=== PATIENT | male | born 1945 | race Caucasian/White ===

== ENCOUNTER 2016-03-26 06:11 | Day surgery (SDC) | payer MEDICARE, OTHER ==
[2016-03-24 15:43] VITALS: BMI 28.8
[~2016-03-26 06:11] MED LIST: LACTATED RINGERS 1,000 ML IV SCH; SODIUM CHLORIDE 0.9% 1,000 ML IV SCH
[2016-03-26 07:08] LABS: INR 2.4 (<1.1)
[2016-03-26 07:09] LABS: Prothrombin Time 23.3 sec (9.0-12.0)
[2016-03-26] MEDS ORDERED: SODIUM CHLORIDE 0.9% 500 ML IV ONE (07:17)
[2016-03-26] MEDS ORDERED: PROPOFOL 10 MG/ML 20 ML VIAL IV ONE (07:45)
--- NOTE | 2016-03-26 08:01 | P.PCN ---
Date of Procedure: 03/26/16 Preoperative Diagnosis: Atrial flutter Postoperative Diagnosis: Sinus rhythm and sinus bradycardia with intermittent pacemaker rhythm Procedure(s) Performed: Cardioversion Description of Procedure: This is 71-year-old gentleman with history of ischemic cardiomyopathy was recently diagnosed to have atrial flutter. Patient was adequately anticoagulated and was brought in for cardioversion. Patient was given IV sedation with propofol by department of anesthesia. A synchronized shock of 100 J was applied with the anterior-posterior paddles. Patient converted to sinus rhythm. Tolerated the procedure well. No immediate complications. Plan: Patient will be monitored for the next 2-3 hours. If stable will be discharged home. Patient will continue home medications. Follow-up with Dr. Bruce in 1 week.
[2016-03-26 08:28] VITALS: RESP 16
[2016-03-26 10:36] VITALS: BP 124/79; PULSE 56; TEMP 98
== END 2016-03-26 10:43 | disposition home or self-care (01) ==
LOC: CATHCVL 06:11
PROVIDERS: ATTEND Internal Medicine Cardiovascular Disease
DX: I48.92 Unspecified atrial flutter (principal); Z79.01 Long term (current) use of anticoagulants; I25.89 Other forms of chronic ischemic heart disease; I10 Essential (primary) hypertension; Z87.891 Personal history of nicotine dependence; I25.10 Atherosclerotic heart disease of native coronary artery without angina pectoris; Z95.810 Presence of automatic (implantable) cardiac defibrillator; Z95.5 Presence of coronary angioplasty implant and graft; Z95.1 Presence of aortocoronary bypass graft; E78.5 Hyperlipidemia, unspecified; E78.00 Pure hypercholesterolemia, unspecified; I25.2 Old myocardial infarction; Z79.02 Long term (current) use of antithrombotics/antiplatelets; Z79.82 Long term (current) use of aspirin; Z79.899 Other long term (current) drug therapy; Z88.8 Allergy status to other drugs, medicaments and biological substances
CPT/HCPCS: 93005; 92960; 85610; J2704; 99152

== ENCOUNTER 2017-02-22 21:14 | Inpatient (IN) | payer MEDICARE, OTHER ==
[2017-02-22] MEDS ORDERED: SODIUM CHLORIDE 0.9% 1,000 ML IV STA (22:21)
--- NOTE | 2017-02-22 22:25 | ED ---
General Adult HPI - General Chief complaint: Chest Pain Stated complaint: chest pain Time Seen by Provider: 02/22/17 21:16 Source: patient, EMS, RN notes reviewed, old records reviewed Mode of arrival: EMS Limitations: no limitations - History of Present Illness Initial comments: This is a 71-year-old male to the ER for evaluation. This patient presents today for evaluation of ventricular tachycardia. Patient is transferred to Hospital requested branch account manager for intervention. Patient himself at this time is no complaints of chest pain or shortness of breath. Taking all medications as prescribed, no discharge of defibrillator - Related Data Home Medications Medication Instructions Recorded Confirmed Isosorbide Mononitrate ER [Imdur] 60 mg PO DAILY 02/08/14 02/22/17 Losartan [Cozaar] 25 mg PO DAILY 02/08/14 02/22/17 Warfarin [Coumadin] 2.5 mg PO DAILY 03/24/16 02/22/17 Carvedilol [Coreg] 6.25 mg PO BID 12/11/16 02/22/17 Previous Rx's Medication Instructions Recorded Aspirin 81 mg PO DAILY #30 chew 12/01/15 Atorvastatin [Lipitor] 80 mg PO HS #30 tab 12/01/15 Clopidogrel [Plavix] 75 mg PO DAILY #100 tab 12/01/15 Nitroglycerin Sl Tabs [Nitrostat] 0.4 mg SUBLINGUAL Q5M PRN #25 tab 12/01/15 Spironolactone [Aldactone] 12.5 mg PO DAILY #30 tab 12/01/15 Allergies Allergy/AdvReac Type Severity Reaction Status Date / Time RUTH Inhibitors AdvReac Severe KIDNEY Verified 02/22/17 21:34 FAILURE Review of Systems ROS Statement: Those systems with pertinent positive or pertinent negative responses have been documented in the HPI. ROS Other: All systems not noted in ROS Statement are negative. Past Medical History Past Medical History: Atrial Fibrillation, Chest Pain / Angina, Eye Disorder, Hyperlipidemia, Hypertension, Myocardial Infarction ([place]), Renal Disease Additional Past Medical History / Comment(s): SEE DR PRASAD'S H&P. HX RENAL PROB R/T RUTH Inhibitors, STATES LEFT KIDNEY SMALLER THAN RIGHT, HAD RENAL FAILURE 2006-RESOLVED. CARDIOMYOPATHY. AAA, HAS YEARLY F/U. GLAUCOMA 2017 SeeCardiology H&P, Dr Prasad;s Last Myocardial Infarction Date:: 2010 History of Any Multi-Drug Resistant Organisms: None Reported Past Surgical History: AICD, Coronary Bypass/CABG, Heart Catheterization, Heart Catheterization With Stent Additional Past Surgical History / Comment(s): 1994 Cabg triple vessel. TOTAL OF 4 STENTS. LT CarOtid Endartectomy. GENERATOR CHANGE 09/20/14, AND 10-16-14 HAD REVISION OF PIPE LINE WALKER. Past Anesthesia/Blood Transfusion Reactions: No Reported Reaction Additional Past Anesthesia/Blood Transfusion Reaction / Comment(s): Pt recieved blood with no reaction. Date of Last Stent Placement:: 11/2015 Type of Cardiac Device: AICD Device Placement Date:: 06/27/10,10-16-14 Past Psychological History: No Psychological Hx Reported Smoking Status: Former smoker Past Alcohol Use History: None Reported Past Drug Use History: None Reported - Past Family History Father Family Medical History: Congestive Heart Failure (CHF), Myocardial Infarction ( [place]) Mother Family Medical History: Cancer Additional Family Medical History / Comment(s): Mother of unknown cancer. General Exam Limitations: no limitations General appearance: alert, in no apparent distress Head exam: Present: atraumatic, normocephalic, normal inspection Eye exam: Present: normal appearance, PERRL, EOMI. Absent: scleral icterus, conjunctival injection, periorbital swelling ENT exam: Present: normal exam, mucous membranes moist Neck exam: Present: normal inspection. Absent: tenderness, meningismus, lymphadenopathy Respiratory exam: Present: normal lung sounds bilaterally. Absent: respiratory distress, wheezes, rales, rhonchi, stridor Cardiovascular Exam: Present: regular rate, normal rhythm, normal heart sounds. Absent: systolic murmur, diastolic murmur, rubs, gallop, clicks GI/Abdominal exam: Present: soft, normal bowel sounds. Absent: distended, tenderness, guarding, rebound, rigid Extremities exam: Present: normal inspection, full ROM, normal capillary refill. Absent: tenderness, pedal edema, joint swelling, calf tenderness Back exam: Present: normal inspection Neurological exam: Present: alert, oriented X3, CN II-XII intact Psychiatric exam: Present: normal affect, normal mood Skin exam: Present: warm, dry, intact, normal color. Absent: rash Course Vital Signs 02/22/17 02/22/17 21:21 22:01 Temperature 97.6 F Pulse Rate 68 60 Respiratory 18 18 Rate Blood Pressure 167/83 147/78 O2 Sat by Pulse 98 99 Oximetry - Reevaluation(s) Reevaluation #1: 02/22/17 23:16 Transfer paperwork from transferring facility is reviewed EKG Findings - EKG Comments: EKG Findings:: EKG shows sinus rhythm rate of 64, VT 244, QRS 128, QTc 412 Medical Decision Making - Medical Decision Making 71 male who is accepted in transfer for evaluation regarding ventricular tachycardia, spoke with cardiology who will admit patient to medicine, patient [id number] troponins and have cardiology evaluation in the morning, patient to be ruled out for acute cardiopulmonary evaluation and support Disposition Clinical Impression: Atrial fib/flutter, transient, AICD (automatic cardioverter/defibrillator) present, Ventricular tachycardia Disposition: ADMITTED IP TO THIS HOSP Condition: Fair Referrals: Brii Canada DO [Primary Care Provider] - 1-2 days
[2017-02-22] MEDS ORDERED: NITROGLYCERIN SL TABS 0.4 MG TAB SUBLINGUAL PRN (23:10)
[2017-02-22] MEDS ORDERED: MORPHINE SULFATE 5 MG/ML SYRINGE IV PRN (23:10)
[2017-02-22 23:23] LABS: Creatine Kinase MB 13.1 ng/mL (0.0-2.4); Troponin I 5.74 ng/mL (0.000-0.034)
[2017-02-22] MEDS ORDERED: HEPARIN SODIUM,PORCINE 5,000 UNIT/ML 1 ML VIAL IV PRN (23:30)
[2017-02-23] MEDS: SODIUM CHLORIDE 0.9% 1,000 ML IV SCH ×2 (00:07→20:15)
[2017-02-23 00:36] VITALS: BMI 28.5
[2017-02-23] MEDS: HEPARIN SOD,PORK IN 0.45% NACL 25,000 UNIT in 0.45% NACL 1 500ML.BAG IV SCH ×2 (00:41→20:15)
[2017-02-23] MEDS: NITROGLYCERIN OINT 1 INCH/GM PACKET TOPICAL SCH ×2 (00:43→06:12)
--- NOTE | 2017-02-23 01:00 | P.HPIM ---
History of Present Illness H&P Date: 02/23/17 Chief Complaint: chest pain 71-year-old male who developed chest pain after he lifted some bags.pain was described as pressure associated with some shortness of breath. She has an extensive cardiac history had open-heart surgery in the past. This had 4 stents after that. Patient with history of cardiomyopathy had defibrillator placed in the past and it was changed. Patient was scheduled to have a procedure for SVT by Dr Prasad. Upon evaluation in the ER, patient was found to have elevated troponins. Started on heparin drip and Nitropaste patient currently chest pain-free. Review of Systems Constitutional: Denies fever, Denies sweats Cardiovascular: Reports chest pain, Denies irregular heart beat Respiratory: Denies excessive sputum, Denies hemoptysis, Denies pleurisy Gastrointestinal: Denies abdominal pain, Denies diarrhea, Denies nausea, Denies vomiting Genitourinary: Denies genital pain, Denies polyuria Musculoskeletal: Denies loss of height, Denies myalgias Musculoskeletal: absent: ankle pain, elbow pain Integumentary: Denies pruritus, Denies rash Neurological: Denies numbness, Denies weakness Psychiatric: Reports as per HPI Endocrine: Denies fatigue, Denies weight change Hematologic/Lymphatic: Denies lymphadenopathy Allergic/Immunologic: Denies angioedema, Denies wheezing Past Medical History Past Medical History: Atrial Fibrillation, Chest Pain / Angina, Eye Disorder, Hyperlipidemia, Hypertension, Myocardial Infarction ([place]), Renal Disease Additional Past Medical History / Comment(s): SEE DR PRASAD'S H&P. HX RENAL PROB R/T RUTH Inhibitors, STATES LEFT KIDNEY SMALLER THAN RIGHT, HAD RENAL FAILURE 2006-RESOLVED. CARDIOMYOPATHY. AAA, HAS YEARLY F/U. GLAUCOMA 2017 SeeCardiology H&P, Dr Prasad;s Last Myocardial Infarction Date:: 2010 History of Any Multi-Drug Resistant Organisms: None Reported Past Surgical History: AICD, Coronary Bypass/CABG, Heart Catheterization, Heart Catheterization With Stent Additional Past Surgical History / Comment(s): 1994 Cabg triple vessel. TOTAL OF 4 STENTS. LT CarOtid Endartectomy. GENERATOR CHANGE 09/20/14, AND 10-16-14 HAD REVISION OF ELECTRICIAN'S ASSISTANT. Past Anesthesia/Blood Transfusion Reactions: No Reported Reaction Additional Past Anesthesia/Blood Transfusion Reaction / Comment(s): Pt recieved blood with no reaction. Date of Last Stent Placement:: 11/2015 Type of Cardiac Device: AICD Device Placement Date:: 06/27/10,10-16-14 Past Psychological History: No Psychological Hx Reported Additional Psychological History / Comment(s): Pt lives with at home. Pt is independent . Pt is retired FROM [employer]. He drives a car.RETIRED WORK IN [employer]. Smoking Status: Former smoker Past Alcohol Use History: None Reported Additional Past Alcohol Use History / Comment(s): STARTED SMOKING AT AGE 17, SMOKED 1 PPD, QUIT 2006 Past Drug Use History: None Reported - Past Family History Father Family Medical History: Congestive Heart Failure (CHF), Myocardial Infarction ( [place]) Mother Family Medical History: Cancer Additional Family Medical History / Comment(s): Mother of unknown cancer. Medications and Allergies Home Medications Medication Instructions Recorded Confirmed Type Isosorbide Mononitrate ER [Imdur] 60 mg PO DAILY 02/08/14 02/22/17 History Losartan [Cozaar] 25 mg PO DAILY 02/08/14 02/22/17 History Aspirin 81 mg PO DAILY #30 chew 12/01/15 02/22/17 Rx Atorvastatin [Lipitor] 80 mg PO HS #30 tab 12/01/15 02/22/17 Rx Clopidogrel [Plavix] 75 mg PO DAILY #100 tab 12/01/15 02/22/17 Rx Nitroglycerin Sl Tabs [Nitrostat] 0.4 mg SUBLINGUAL Q5M PRN #25 tab 12/01/1509/02 Rx Spironolactone [Aldactone] 12.5 mg PO DAILY #30 tab 12/01/15 02/22/17 Rx Warfarin [Coumadin] 2.5 mg PO DAILY 03/24/16 02/22/17 History Carvedilol [Coreg] 6.25 mg PO BID 12/11/16 02/22/17 History Allergies Allergy/AdvReac Type Severity Reaction Status Date / Time RUTH Inhibitors AdvReac Severe KIDNEY Verified 02/22/17 21:34 FAILURE Physical Exam Vitals: Vital Signs Temp Pulse Resp BP Pulse Ox 02/23/17 00:26 97.1 F L 68 18 166/75 100 02/23/17 00:12 97.1 F L 65 18 166/82 100 02/22/17 22:01 60 18 147/78 99 02/22/17 21:21 97.6 F 68 18 167/83 98 Intake and Output 02/22/17 02/22/17 02/23/17 14:59 22:59 06:59 Other: Weight 92.986 kg 92.986 kg Patient Weight 02/23/17 06:59 Weight 92.986 kg - EENT Eyes: EOMI, PERRLA - Neck Neck: no lymphadenopathy, no stridor - Respiratory Respiratory: bilateral: CTA, negative: rhonchi, wheezing - Cardiovascular Rhythm: regular Heart sounds: normal: S1, S2 - Gastrointestinal General gastrointestinal: normal bowel sounds - Integumentary Integumentary: no pale, no rash - Neurologic Neurologic: CNII-XII intact - Musculoskeletal Musculoskeletal: strength equal bilaterally - Psychiatric Psychiatric: A&O x's 3, appropriate affect Results Labs: Abnormal Lab Results - Last 24 Hours (Table) 02/22/17 Range/Units 22:29 CK-MB (CK-2) 13.1 H* (0.0-2.4) ng/mL Troponin I 5.740 H* (0.000-0.034) ng/mL Thrombosis Risk Factor Assmnt - Choose All That Apply Each Risk Factor Represents 2 Points: Age 61-74 years Thrombosis Risk Factor Assessment Total Risk Factor Score: 2 Thrombosis Risk Factor Assessment Level: Low Risk Assessment and Plan (1) NSTEMI (non-ST elevated myocardial infarction) Narrative/Plan: Currently on heparin drip Nitro paste Aspirin cardiology to evaluate Current Visit: No Status: Acute Code(s): I21.4 - NON-ST ELEVATION (NSTEMI) MYOCARDIAL INFARCTION SNOMED Code(s): 953535284 (2) CAD (coronary artery disease) Narrative/Plan: History of chronic artery bypass grafting and 4 stents On aspirin and Plavix Current Visit: Yes Status: Acute Code(s): I25.10 - ATHSCL HEART DISEASE OF [place] CORONARY ARTERY W/O ANG PCTRS SNOMED Code(s): 16808581 (3) Ventricular tachycardia Narrative/Plan: Patient had procedure scheduled for tomorrow. Currently no signs of SVT Current Visit: Yes Status: Acute Code(s): I47.2 - VENTRICULAR TACHYCARDIA SNOMED Code(s): 49218835 (4) CRF (chronic renal failure) Narrative/Plan: We'll monitor renal function Current Visit: No Status: Acute Code(s): N18.9 - CHRONIC KIDNEY DISEASE, UNSPECIFIED SNOMED Code(s): 21206736 (5) HTN (hypertension) Narrative/Plan: On Cozaar ,imdur and coreg Current Visit: No Status: Acute Code(s): I10 - ESSENTIAL (PRIMARY) HYPERTENSION SNOMED Code(s): 43023841 (6) Hyperlipemia Narrative/Plan: Lipitor Current Visit: No Status: Acute Code(s): E78.5 - HYPERLIPIDEMIA, UNSPECIFIED SNOMED Code(s): 24758234 (7) Ischemic cardiomyopathy Narrative/Plan: Compensated Current Visit: No Status: Acute Code(s): I25.5 - ISCHEMIC CARDIOMYOPATHY SNOMED Code(s): 444400833
[2017-02-23 04:55] LABS: Potassium 4.5 mmol/L (3.5-5.1)
[2017-02-23 06:21] LABS: Basophils % (A) 1 %; Eosinophils # (A) 0.1 k/uL (0-0.7); Eosinophils % (A) 1 %; HGB 12.3 gm/dL (13.0-17.5); Lymphocytes # (A) 1.2 k/uL (1.0-4.8); Lymphocytes % (A) 21 %; MCH 27.3 pg (25.0-35.0); MCHC 30.8 g/dL (31.0-37.0); MCV 88.7 fL (80.0-100.0); Mean Platelet Volume 7.4; Monocytes # (A) 0.4 k/uL (0-1.0); Monocytes % (A) 7 %; Neutrophils % (A) 69 %; Platelet Count 152 k/uL (150-450); RBC 4.51 m/uL (4.30-5.90); RDW 15.8 % (11.5-15.5); WBC 5.8 k/uL (3.8-10.6)
[2017-02-23 07:06] LABS: Creatine Kinase MB 17.6 ng/mL (0.0-2.4); Troponin I 8.06 ng/mL (0.000-0.034)
[2017-02-23 07:26] LABS: Albumin 3.7 g/dL (3.5-5.0); Calcium 9.3 mg/dL (8.4-10.2); Magnesium 1.8 mg/dL (1.6-2.3); Potassium 4.3 mmol/L (3.5-5.1); Total Bilirubin 0.6 mg/dL (0.2-1.3); Total Protein 6.3 g/dL (6.3-8.2)
[2017-02-23] MEDS: SPIRONOLACTONE 25 MG TAB PO SCH (07:51)
[2017-02-23] MEDS: CARVEDILOL 6.25 MG TAB PO SCH ×2 (07:51→20:19)
[2017-02-23] MEDS: CLOPIDOGREL 75 MG TAB PO SCH (07:52)
[2017-02-23] MEDS: LOSARTAN 25 MG TAB PO SCH (07:52)
[2017-02-23] MEDS: ASPIRIN 81 MG PO SCH (07:52)
[2017-02-23] MEDS ORDERED: SODIUM CHLORIDE 0.9% 1,000 ML in EMPTY BAG 1 BAG IV ONE (08:26)
[2017-02-23] MEDS ORDERED: ALPRAZolam 0.25 MG TAB PO PRN (08:26)
[2017-02-23] MEDS ORDERED: ASPIRIN 325 MG TAB PO STA (08:26)
[2017-02-23] MEDS ORDERED: NITROGLYCERIN SL TABS 0.4 MG TAB SUBLINGUAL PRN ×2 (08:26→13:05)
[2017-02-23] MEDS ORDERED: ALPRAZolam 0.5 MG TAB PO PRN (08:26)
[2017-02-23] MEDS ORDERED: ATORVASTATIN 80 MG TAB PO STA (08:26)
[2017-02-23] MEDS ORDERED: ASPIRIN 325 MG TAB PO SCH (09:00)
--- NOTE | 2017-02-23 09:28 | P.PN ---
Progress Note - Text Progress Note Date: 02/23/17 Patient is a 71-year-old male with a significant past medical history of coronary artery disease with prior bypass and stent, atrial fibrillation, cardiomyopathy, hypertension, and dyslipidemiawho presented to the emergency department as a transfer for chest pain and non-STEMI. He was started on a heparin drip and Nitropaste. On his initial vital signs he is slightly hypertensive at 172/75.he is admitted to the selective care unit for further evaluation by cardiology. His troponins were trended and continued to go up with a maximum of 8. He was maintained on his aspirin, Lipitor, Plavix, and Coreg. patient seen and examined at bedside. He denies any more chest pain. Denies any shortness of breath, lightheadedness, or dizziness. He denies any nausea or vomiting. He has no other complaints currently. vital signs temperature 97.6 pulse 60 respiratory rate 18 blood pressure 140/67 97% room air General: non toxic, no distress, appears at stated age Derm: warm, dry Head: atraumatic, normocephalic, symmetric Eyes: EOMI, no lid lag, anicteric sclera Mouth: no lip lesion, mucus membranes moist Cardiovascular: S1S2 reg, no murmur, positive posterior tibial pulse bilateral, Lungs: CTA bilateral, no rhonchi, no rales , no accessory muscle use Abdominal: soft, nontender to palpation, no guarding, no appreciable organomegaly Ext: no gross muscle atrophy, no edema, no contractures Neuro: CN II-XI grossly intact, no focal neuro deficits Psych: Alert, oriented, appropriate affect 1. non-ST segment elevated myocardial infarction-continue with aspirin, Plavix, Lipitor, Coreg, and heparin drip. Await cardiology recommendations. For formal note from 02/23 see H&P by Dr. Ronquillo. Harini Webber DO
[2017-02-23] MEDS ORDERED: SODIUM CHLORIDE 0.9% 1,000 ML IV ONE (11:14)
[2017-02-23] MEDS ORDERED: MIDAZOLAM 2 MG/2 ML VIAL IV ONE (11:45)
[2017-02-23] MEDS ORDERED: fentaNYL (PF) 50 MCG/ML 2 ML AMP IV ONE (11:45)
[2017-02-23] MEDS ORDERED: LIDOCAINE 2% INJ 20 MG/ML SQ ONE ×2 (11:48→12:08)
[2017-02-23] MEDS ORDERED: ISOSORBIDE MONONITRATE ER 60 MG TAB.ER.24H PO SCH (12:00)
[2017-02-23] MEDS ORDERED: BIVALIRUDIN BOLUS 250 MG/50 ML IV ONE (12:44)
[2017-02-23] MEDS ORDERED: BIVALIRUDIN 250 MG in SODIUM CHLORIDE 0.9% 50 ML IV ONE (12:45)
[2017-02-23] MEDS ORDERED: niCARdipine Syringe (1,000 mcg/10 mL) INTRACORON ONE (12:58)
[2017-02-23] MEDS ORDERED: IODIXANOL 320 MG/ML 100 ML IV ONE (12:58)
[2017-02-23] MEDS ORDERED: CLOPIDOGREL 75 MG TAB PO ONE (13:02)
[2017-02-23] MEDS ORDERED: ZOLPIDEM 5 MG TAB PO PRN (13:05)
[2017-02-23] MEDS ORDERED: ATROPINE SULFATE 0.1 MG/ML 10ML SYRINGE IV PRN (13:05)
[2017-02-23] MEDS ORDERED: MAG HYDROX/AL HYDROX/SIMETH 30 ML CUP PO PRN (13:05)
[2017-02-23] MEDS ORDERED: RX INFO: IV CONTRAST WAS GIVEN 1 EACH MISC MISCELLANE PRN (13:05)
[2017-02-23] MEDS ORDERED: SODIUM CHLORIDE 0.9% 1,000 ML IV SCH (13:15)
--- NOTE | 2017-02-23 13:31 | CONS ---
CONSULTATION Mr. Prado is a 71-year-old male who has a known history of coronary artery disease and presented to the emergency room at [facility] with symptoms of chest discomfort. He has a prior history of coronary artery disease status post coronary artery bypass grafting and percutaneous revascularization. He has a history of ischemic cardiomyopathy and status post ICD and was scheduled to undergo VT ablation today by Dr. Prasad. Yesterday, after moving the trash, he had severe chest discomfort radiating to the left arm and lasting for a few hours. He came into the emergency room at [facility] and subsequently transferred to [facility] where his troponins are elevated. His prior history is remarkable for the coronary bypass grafting performed in 1994. Most recently underwent stenting of the saphenous vein graft to the left circumflex done by Dr. Willingham in November of 2015 at the time of his cardiac catheterization. At that time, he was found to have total occluded left circumflex, totally occluded right coronary artery. The saphenous vein graft to the right coronary was totally occluded. He had significant stenosis of the saphenous vein graft to the left circumflex and a patent BARRAZA to the LAD. At that time, his echocardiogram showed an ejection fraction of 20-25%. The patient, according to him, has been stable until the episode yesterday. He has rare palpitation. No syncope. No PND. No orthopnea. No peripheral edema. His breathing has been stable. His coronary risk factors are remarkable for history of hypertension, history of hyperlipidemia. He is a nonsmoker, nondiabetic. MEDICATIONS: His medication includes: Aspirin, Lipitor 80 mg daily, Coreg 6.5 mg twice a day, Plavix 75 mg daily, isosorbide mononitrate 60 mg daily, losartan 25 mg daily. Spironolactone 12 .5 mg daily, and he was on Coumadin in the past because of episode of atrial flutter, status post cardioversion. REVIEW OF SYSTEMS: RESPIRATORY system: He has dyspnea on exertion. No recent wheezing. No cough. No wheezing. No cough. GI system: No recent GI bleeding. No peptic ulcer disease. system: No dysuria, hematuria. Nervous system: No history of stroke or seizure. PHYSICAL EXAMINATION: A 71-year-old male, alert and oriented, no apparent distress. Blood pressure 145/80 with a heart in the 60s. HEAD: Normocephalic. Eyes: Sclerae anicteric. Neck good upstroke. No bruit. No jugular venous distention. LUNGS: Clear to auscultation. HEART: Regular rate and rhythm S1, S2. No S3 with systolic murmur heard at the base. No diastolic murmur. No rub. ABDOMEN: Soft, nontender. Positive bowel sounds. No megaly. EXTREMITIES: No edema. Intact distal pulses. LAB DATA: Lab data revealed troponin of 5.7 and 8.0. BUN and creatinine 25 and 1.5, potassium 4.3, cholesterol 121, LDL of 68. His EKG revealed a sinus mechanism with intraventricular conduction delay. First- degree AV block and T-wave inversion laterally that appears to be more prominent. IMPRESSION: 1. Status post non ST-segment elevation myocardial infarction in a patient with known history of severe ischemic cardiomyopathy. The possibility of progression of disease in saphenous vein graft to left circumflex cannot be excluded. 2. Severe ischemic cardiomyopathy. 3. History of nonsustained ventricular tachycardia was scheduled to undergo ablation. 4. History of hypertension. 5. Hyperlipidemia. RECOMMENDATION: From the cardiac standpoint, we will proceed with coronary angiography by Dr. Bruce who is his primary burr grinder to further evaluate the status and guide treatment. In the meantime, I will obtain echocardiogram with Doppler and depending on his progress, further recommendation will be made. Thank you for this consult. We will follow with you. LINL / IJN: [id number] /
[2017-02-23 14:29] LABS: Creatine Kinase MB 12.1 ng/mL (0.0-2.4); Troponin I 3.61 ng/mL (0.000-0.034)
[2017-02-23 17:11] LABS: INR 1.2 (<1.2); Prothrombin Time 11.7 sec (9.0-12.0)
[2017-02-23] MEDS ORDERED: HYDROcodone/APAP 7.5-325MG 1 EACH TAB PO ONE (17:41)
--- NOTE | 2017-02-23 17:55 | ECHOF ---
Referral Reason:ut MEASUREMENTS -------- HEIGHT: 180.3 cm WEIGHT: 94.8 kg BP: 140/67 RVIDd: 3.1 cm (< 3.3) IVSd: 1.6 cm (0.6 - 1.1) LVIDd: 4.7 cm (3.9 - 5.3) LVPWd: 1.4 cm (0.6 - 1.1) IVSs: 1.9 cm LVIDs: 4.1 cm LVPWs: 1.6 cm LAESV Index (A-L): 32.31 ml/m Ao Diam: 3.5 cm (2.0 - 3.7) AV Cusp: 1.8 cm (1.5 - 2.6) LA Diam: 4.2 cm (2.7 - 3.8) MV EXCURSION: 15.857 mm (> 18.000) MV EF SLOPE: 61 mm/s (70 - 150) EPSS: 1.4 cm MV E Venkat: 0.52 m/s MV DecT: 337 ms MV A Venkat: 0.98 m/s MV E/A Ratio: 0.53 RAP: 5.00 mmHg RVSP: 22.70 mmHg FINDINGS -------- Resting bradycardia (HR<60bpm). This was a technically difficult study with suboptimal views. The left ventricular size is normal. There is moderate concentric left ventricular hypertrophy. T here is severe global hypokinesis of LV . Overall left ventricular systolic function is severely im paired with, an EF < 20%. The right ventricle is normal in size. Normal LA size by volume 22+/-6 ml/m2. The right atrium is normal in size. 1.5mg of Definity was utilized for enhancement of images Aortic valve is trileaflet and is mildly thickened. There is no evidence of aortic regurgitation. There is no evidence of aortic stenosis. The mitral valve leaflets are mildly thickened. Mild mitral annular calcification present. There is trace to mild mitral regurgitation. Trace tricuspid regurgitation present. Right ventricular systolic pressure is normal at < 35 mmHg. There is no evidence of pulmonary hypertension. The pulmonic valve was not well visualized. The aortic root size is normal. IVC Not well visulized. The pericardium is normal. There is no pericardial effusion. CONCLUSIONS -------- 1. Resting bradycardia (HR<60bpm). 2. This was a technically difficult study with suboptimal views. 3. The left ventricular size is normal. 4. There is moderate concentric left ventricular hypertrophy. 5. There is severe global hypokinesis of LV . 6. Overall left ventricular systolic function is severely impaired with, an EF < 20%. 7. Normal LA size by volume 22+/-6 ml/m2. 8. 1.5mg of Definity was utilized for enhancement of images 9. Aortic valve is trileaflet and is mildly thickened. 10. The mitral valve leaflets are mildly thickened. 11. Mild mitral annular calcification present. 12. There is trace to mild mitral regurgitation. 13. Trace tricuspid regurgitation present. 14. Right ventricular systolic pressure is normal at < 35 mmHg. 15. There is no evidence of pulmonary hypertension. 16. The pulmonic valve was not well visualized. 17. The aortic root size is normal. 18. IVC Not well visulized. 19. There is no pericardial effusion. BLOCK CAPTAIN: Ramiro Raymundo RDCS
[2017-02-23] MEDS: WARFARIN 2.5 MG TAB PO SCH ×2 (18:03→18:34)
[2017-02-23] MEDS: ISOSORBIDE MONONITRATE ER 60 MG TAB.ER.24H PO SCH (20:19)
[2017-02-23] MEDS ORDERED: ATORVASTATIN 80 MG TAB PO SCH (21:00)
[2017-02-24 06:50] LABS: Basophils % (A) 1 %; Eosinophils # (A) 0.1 k/uL (0-0.7); Eosinophils % (A) 2 %; HCT 39.5 % (39.0-53.0); HGB 12.4 gm/dL (13.0-17.5); Lymphocytes # (A) 1.1 k/uL (1.0-4.8); Lymphocytes % (A) 19 %; MCH 28.3 pg (25.0-35.0); MCHC 31.5 g/dL (31.0-37.0); MCV 89.8 fL (80.0-100.0); Monocytes # (A) 0.4 k/uL (0-1.0); Monocytes % (A) 7 %; Neutrophils # (A) 3.9 k/uL (1.3-7.7); Neutrophils % (A) 70 %; Platelet Count 147 k/uL (150-450); RDW 14.4 % (11.5-15.5); WBC 5.6 k/uL (3.8-10.6)
[2017-02-24 07:00] LABS: INR 1.1 (<1.2); Prothrombin Time 10.9 sec (9.0-12.0)
[2017-02-24 07:07] LABS: Anion Gap 10 mmol/L; Blood Urea Nitrogen 24 mg/dL (9-20); Calcium 8.9 mg/dL (8.4-10.2); Carbon Dioxide 19 mmol/L (22-30); Chloride 111 mmol/L (98-107); Glucose 86 mg/dL (74-99); Potassium 4.5 mmol/L (3.5-5.1); Sodium 140 mmol/L (137-145)
[2017-02-24] MEDS: LOSARTAN 25 MG TAB PO SCH (09:24)
[2017-02-24] MEDS: SPIRONOLACTONE 25 MG TAB PO SCH (09:24)
[2017-02-24] MEDS: CLOPIDOGREL 75 MG TAB PO SCH (09:24)
[2017-02-24] MEDS: CARVEDILOL 6.25 MG TAB PO SCH (09:24)
[2017-02-24] MEDS: ASPIRIN 81 MG PO SCH (09:25)
[2017-02-24 09:34] VITALS: TEMP 97
[2017-02-24 11:22] VITALS: BP 130/78; PULSE 59; RESP 20
--- NOTE | 2017-02-24 13:00 | P.PN ---
Subjective Progress Note Date: 02/24/17 Principal diagnosis: Non-STEMI This is a 71-year-old gentleman with known history of coronary artery disease and prior bypass surgery and PCI who presented to the emergency room at [facility] with symptoms of chest discomfort. He has a known history of hypertension, hyperlipidemia, ischemic cardiomyopathy status post ICD and was scheduled to undergo a VT ablation by Dr. Prasad on the same day which she was admitted. Patient ruled in for a non-ST elevation myocardial infarction, was taken to the cardiac catheterization lab where he underwent a cardiac cath by Dr. Bruce. Subsequent to that patient underwent angioplasty and stenting of the saphenous vein graft to the OM by Dr. Martinez. At pressure this morning 130/70 with a heart rate in the 60s. White blood cell count 5.6, hemoglobin 12.4, platelet count 147, potassium 4.5, BUN 24, creatinine 1.4. EKG from this morning shows a sinus bradycardia with no changes from post-PCI. Objective - Vital Signs Vital signs: Vital Signs Temp 97.0 F L 02/24/17 11:21 Pulse 59 L 02/24/17 11:22 Resp 20 02/24/17 11:22 BP 130/78 02/24/17 11:21 Pulse Ox 98 02/24/17 11:21 Intake & Output 02/23/17 02/24/17 02/24/17 18:59 06:59 18:59 Intake Total 982.9 120 Balance 982.9 120 Weight 95.1 kg 92.9 kg Intake: IV 62.9 Intake, IV Titration 800 Amount Sodium Chloride 0.9% 1, 800 000 ml @ 100 mls/hr IV . Q10H [facility] Rx#:[id number] Oral 120 120 Other: Voiding Method Toilet Toilet Toilet # Voids 1 1 - Exam PHYSICAL EXAMINATION: HEENT: Head is atraumatic, normocephalic. Pupils equal, round. Neck is supple. There is no elevated jugular venous pressure. HEART EXAMINATION: Heart S1 and S2 systolic murmur is heard. CHEST EXAMINATION: Lungs are clear to auscultation and precussion. No chest wall tenderness is noted on palpation or with deep breathing. ABDOMEN: Soft, nontender. Bowel sounds are heard. No organomegaly noted. Right groin soft, no evidence of any hematoma. EXTREMITIES: 2+ peripheral pulses with no evidence of peripheral edema and no calf tenderness noted. NEUROLOGIC patient is awake, alert and oriented -3. . - Labs CBC & Chem 7: 02/24/17 06:32 02/24/17 06:32 Labs: Abnormal Lab Results - Last 24 Hours (Table) 02/23/17 02/23/17 02/24/17 Range/Units 05:25 13:28 06:32 Hgb 12.4 L (13.0-17.5) gm/dL Plt Count 147 L (150-450) k/uL INR 1.2 H (<1.2) Chloride (98-107) mmol/L Carbon Dioxide (22-30) mmol/L BUN (9-20) mg/dL Creatinine (0.66-1.25) mg/dL CK-MB (CK-2) 12.1 H* (0.0-2.4) ng/mL Troponin I 3.610 H* (0.000-0.034) ng/mL 02/24/17 Range/Units 06:32 Hgb (13.0-17.5) gm/dL Plt Count (150-450) k/uL INR (<1.2) Chloride 111 H (98-107) mmol/L Carbon Dioxide 19 L (22-30) mmol/L BUN 24 H (9-20) mg/dL Creatinine 1.40 H (0.66-1.25) mg/dL CK-MB (CK-2) (0.0-2.4) ng/mL Troponin I (0.000-0.034) ng/mL Assessment and Plan Plan: Assessment and plan #1 non-ST elevation myocardial infarction status post angioplasty and stenting of the saphenous vein graft to the OM #2 severe ischemic cardiomyopathy with prior AICD #3 history of nonsustained ventricular tachycardiac, was scheduled to undergo ablation #4 hypertension #5 hyperlipidemia Plan Patient may be able to be discharged home today from cardiology's perspective, we will make a follow-up appointment for him to see Dr. Bruce in the office in one week. Patient will be discharged home on aspirin 81 mg daily, Lipitor 80 mg daily, Coreg 6.25 mg twice a day, Plavix 75 mg daily, losartan 25 mg daily, Aldactone 12.5 mg daily, patient will also be reinitiated on his Coumadin 2-2 mg daily. DNP note has been reviewed, I agree with a documented findings and plan of care. Patient was seen and examined.
--- NOTE | 2017-02-24 13:32 | P.DS ---
Providers Date of admission: 02/22/17 23:10 Expected date of discharge: 02/24/17 Attending physician: Sulma Ronquillo MD Consults: 02/22/17 23:10 Consult Physician Urgent Consulting Provider: oJzef Prasad Consult Reason/Comments: vt Do you want consulting provider notified?: Yes 02/23/17 13:05 Consult Physician Routine Consulting Provider: [facility] Consult Reason/Comments: Post Interventional patient Do you want consulting provider notified?: Already Contacted Primary care physician: Brii Canada - Discharge Diagnosis(es) (1) NSTEMI (non-ST elevated myocardial infarction) Current Visit: No Status: Acute (2) Chest pain Current Visit: No Status: Acute (3) NSVT (nonsustained ventricular tachycardia) Current Visit: Yes Status: Acute (4) CRF (chronic renal failure) Current Visit: No Status: Acute (5) CAD (coronary artery disease) Current Visit: Yes Status: Acute (6) Ischemic cardiomyopathy Current Visit: No Status: Acute (7) HTN (hypertension) Current Visit: No Status: Acute (8) Hyperlipemia Current Visit: No Status: Acute Hospital Course: Patient is a 71-year-old male with a past medical history of coronary artery disease, ischemic cardiomyopathy with ejection fraction 20-25%, hypertension, and dyslipidemia who presented to the emergency department at [facility] with complaints of chest pain. Initial troponin was elevated and he was transferred here for cardiology eval as he was due to have an SVT ablation the morning after admission. His initial EKG was unchanged. He was given Nitropaste and started on a heparin drip.arrangements were made for admission to the selective care floor. His troponin continued to elevate on the second blood draw. He was seen by cardiology who recommended cardiac cath. He was subsequently taken for cardiac cath and had a stent placed to the greater saphenous vein graft by Dr. Willingham. Blood pressure remained well- controlled during his hospitalization. His lipid profile was within normal limits. Dr. Nair was contacted and he recommends delaying any ablation for at least 6-8 weeks and resuming patient's Coumadin dosing. Tolerated the procedure well and was able to ambulate the floor by the next morning without difficulty. He had resolution of his chest pain. He was determined stable for discharge. On discharge he is sent home on Coumadin 2.5 mg daily. he was also given a prescription to have his INR drawn on 02/27. Patient seen and examined at bedside. he denies any chest pain, shortness breath , nausea, or vomiting. He has been up and ambulating the floor. He is feeling well and wants to go home. present at bedside. All questions answered. They're aware that there to take 2.5 mg of Coumadin daily until seen by cardiology in the office next week. Vital signs reviewed and stable. General: non toxic, no distress, appears at stated age Derm: warm, dry Head: atraumatic, normocephalic, symmetric Eyes: EOMI, no lid lag, anicteric sclera Mouth: no lip lesion, mucus membranes moist Cardiovascular: S1S2 reg, no murmur, positive posterior tibial pulse bilateral, Lungs: CTA bilateral, no rhonchi, no rales , no accessory muscle use Abdominal: soft, nontender to palpation, no guarding, no appreciable organomegaly Ext: no gross muscle atrophy, no edema, no contractures Neuro: CN II-XI grossly intact, no focal neuro deficits Psych: Alert, oriented, appropriate affect A total of 40 minutes of time were spent preparing this complex discharge summary . Pertinent Studies: echocardiogram: ejection fraction less than 20%, moderate concentric left ventricular hypertrophy, severe global hypokinesis of the left ventricle Procedures: cardiac cath 02/23 with placement of sent the saphenous vein graft to the Patient Condition at Discharge: Fair Plan - Discharge Summary Discharge Rx Participant: Yes New Discharge Prescriptions: Continue RX: Losartan [Cozaar] 25 mg PO DAILY RX: Isosorbide Mononitrate ER [Imdur] 60 mg PO DAILY RX: Nitroglycerin Sl Tabs [Nitrostat] 0.4 mg SUBLINGUAL Q5M PRN #25 tab PRN Reason: Chest Pain RX: Atorvastatin [Lipitor] 80 mg PO HS #30 tab RX: Clopidogrel [Plavix] 75 mg PO DAILY #100 tab RX: Spironolactone [Aldactone] 12.5 mg PO DAILY #30 tab RX: Aspirin 81 mg PO DAILY #30 chew RX: Warfarin [Coumadin] 2.5 mg PO DAILY RX: Carvedilol [Coreg] 6.25 mg PO BID Discharge Medication List RX: Isosorbide Mononitrate ER [Imdur] 60 mg PO DAILY 02/08/14 [History] RX: Losartan [Cozaar] 25 mg PO DAILY 02/08/14 [History] RX: Aspirin 81 mg PO DAILY #30 chew 12/01/15 [Rx] RX: Atorvastatin [Lipitor] 80 mg PO HS #30 tab 12/01/15 [Rx] RX: Clopidogrel [Plavix] 75 mg PO DAILY #100 tab 12/01/15 [Rx] RX: Nitroglycerin Sl Tabs [Nitrostat] 0.4 mg SUBLINGUAL Q5M PRN #25 tab [Rx] RX: Spironolactone [Aldactone] 12.5 mg PO DAILY #30 tab 12/01/15 [Rx] RX: Warfarin [Coumadin] 2.5 mg PO DAILY 03/24/16 [History] RX: Carvedilol [Coreg] 6.25 mg PO BID 12/11/16 [History] Follow up Appointment(s)/Referral(s): Brii Canada DO [Primary Care Provider] - 1-2 days Karson Bruce MD [STAFF PHYSICIAN] - 1 Week Ambulatory/Diagnostic Orders: Prothrombin Time INR [LAB.AMB] Location: Determined By Patient Activity/Diet/Wound Care/Special Instructions: Heart healthy diet Activity as tolerated. Discharge Disposition: HOME SELF-CARE
[2017-02-24] MEDS: ISOSORBIDE MONONITRATE ER 60 MG TAB.ER.24H PO SCH (13:38)
[2017-02-24] MEDS ORDERED: WARFARIN 2.5 MG TAB PO SCH (18:00)
--- NOTE | 2017-02-27 13:05 | P.PCN ---
Date of Procedure: 02/23/17 Preoperative Diagnosis: Non-ST elevation myocardial infarction Postoperative Diagnosis: The same Procedure(s) Performed: Left heart catheterization without left ventriculography and selective injection of the vein graft to the OM branch and BARRAZA graft to the LAD Description of Procedure: HISTORY: This is a 72-year-old gentleman with history of ischemic heart disease , previous bypass surgery and ischemic cardiomyopathy who was [facility] to [facility] with chest pains and a evidence of non-ST elevation myocardial infarction. Patient was advised to have a cardiac catheterization by Dr. Avitia CONSENT:I have discussed the risks, benefits and alternative therapies for the above-mentioned procedure and for both sedation/analgesia as well as necessary blood product administration, if indicated, as they pertain to this patient. The patient has indicated understanding and acceptance of the risks and procedures discussed. [] PROCEDURE: Patient was brought to the lab in a fasting state. Patient was given some IV sedation. The right groin is infiltrated with lidocaine and right femoral artery was entered , but the wire could not be advanced. Subsequently, the left groin was infiltrated and left femoral artery was entered using Seldinger technique and A 6-Romanian catheter was left in place and selective coronary arteriography and left ventriculography was performed. Patient tolerated the procedure well. Femoral angiogram was performed. Patient was found to have significant lesion involving the vein graft to the OM branch. Patient had stent placement by Dr. Martinez. Conscious Sedation: Versed 1 mg Fentanyl 50 g Duration : 40 minutes HEMODYNAMICS: The aortic pressure is about 100/70. SELECTIVE CORONARY ARTERIOGRAPHY: LEFT MAIN: The left main coronary artery is small with diffuse disease. THE LEFT ANTERIOR DESCENDING CORONARY ARTERY: Totally occluded proximally THE LEFT CIRCUMFLEX AND IS CORONARY ARTERY: Totally occluded proximally THE RIGHT CORONARY ARTERY: Totally occluded proximally and THE VEIN GRAFT TO THE CIRCUMFLEX: This graft is patent at the proximal portion of previous stent placement. This also patent at the distal anastomosis. At the site of previous stent placement proximally, there appeared to be an unstable plaque with ulcerated lesion. The BARRAZA graft to the LAD: The BARRAZA graft to the LAD is patent throat its length and also to distal anastomosis. The LAD beyond the insertion site has diffuse disease without any significant focal lesions. LEFT VENTRICULOGRAPHY: Not performed FINAL IMPRESSION:. Significant lesion involving the vein graft to the OM branch in the distal portion at the proximal end of the distal stent. The proximal stent is open. The BARRAZA graft to the LAD is open PLAN: Stent placement of the vein graft to the circumflex being done by Dr. Martinez PROGNOSIS: Guarded
--- NOTE | 2017-03-02 12:08 | AN ---
ANGIOGRAPHY REPORT DATE OF SERVICE: 02/26/2017 PERFORMING PHYSICIAN: Marek Willingham MD, Medical Transcriptionist. PROCEDURE PERFORMED: Successful stenting of the SVG to left circumflex using 4.0 x 23 mm Xience CARLOS with good angiographic results. INDICATION: This is a pleasant 72-year-old gentleman who sees Dr. Bruce in the office as an outpatient who presented to the hospital with chest discomfort and underwent heart catheterization and that revealed and ulcerated plaque involving the SVG to the left circumflex. Stenting of that segment was recommended. APPROACH: Right common femoral artery. COMPLICATION: None. LEVEL OF SEDATION: Moderate with sedation length of total heart cath and intervention of 73 minutes. PROCEDURE DESCRIPTION: After diagnostic heart catheterization was performed by Dr. Bruce, we decided to pursue with intervention on the SVG to left circumflex. Anticoagulation was initiated using Angiomax. I took JR4 guide and the SVG was engaged. A whisper wire was used to wire it. Subsequently, I did direct stenting on the lesion using 4.0 x 23 mm Xience CARLOS where the stent was positioned under fluoroscopy guidance and deployed under its nominal pressure. The following angiogram showed good angiographic results without perforation and without dissection and the procedure was completed without any complication. POSTPROCEDURE MANAGEMENT: 1. Dual anti-platelet therapy. 2. Risk factors modifications. 3. Follow up with the patient. MMODL / IJN: [id number] /
--- NOTE | 2017-03-02 12:15 | PTCA ---
PERCUTANEOUS CORONARY INTERVENTION: 02/23/2017 PERFORMING PHYSICIAN: Marek Willingham MD, Early Childhood Associate Teacher. PROCEDURE PERFORMED: Successful stenting of the mid SVG to left circumflex/obtuse marginal branch using 4.0 x 23 mm Xience drug-eluting stent with good angiographic results. INDICATION: This is a pleasant 71-year-old gentleman who is known to have coronary artery disease and known to have triple-vessel coronary artery disease with a known SVG to left circumflex and BARRAZA to LAD and known stenting of the SVG to the left circumflex in the past, presented to the hospital with chest discomfort and ruled in for acute non -ST- elevation myocardial infarction. He underwent a heart catheterization by Dr. Bruce and that revealed in-stent restenosis of the mid SVG of the left circumflex with an ulcerated plaque. In view of that, a percutaneous coronary intervention was recommended. APPROACH: Left common femoral artery. COMPLICATION: None. LEVEL OF SEDATION: Moderate with sedation length of 19 minutes. PROCEDURE DESCRIPTION: After diagnostic heart catheterization was performed by Dr. Bruce and after reviewing the angiogram, we decided to pursue with an intervention on the SVG to left circumflex. Anticoagulation was initiated using heparin. Subsequently, I did engage the SVG to left circumflex using JR4 guide. After that, I wired using a Whisper wire. I did direct stenting on the lesion using 4.0 x 23 mm Xience CARLOS where the stent was positioned under fluoroscopy guidance and deployed under 12 atmospheres for 20 seconds. The following angiogram showed good angiographic results without perforation and without dissection. The procedure was completed without any complication. POSTPROCEDURE MANAGEMENT: 1. Dual anti-platelet therapy. 2. Risk factors modifications and follow up with the patient. MMODL / IJN: [id number] / MTDSavi
== END 2017-02-24 14:26 | disposition home or self-care (01) | DRG 281 ==
LOC: EC 21:14 → 6SEL 23:10
PROVIDERS: ADMIT Internal Medicine; ATTEND Internal Medicine
DX: I21.4 Non-ST elevation (NSTEMI) myocardial infarction (principal); I47.2 Ventricular tachycardia; I48.91 Unspecified atrial fibrillation; I48.92 Unspecified atrial flutter; Z95.1 Presence of aortocoronary bypass graft; I25.10 Atherosclerotic heart disease of native coronary artery without angina pectoris; I12.9 Hypertensive chronic kidney disease with stage 1 through stage 4 chronic kidney disease, or unspecified chronic kidney disease; N18.9 Chronic kidney disease, unspecified; H40.9 Unspecified glaucoma; E78.5 Hyperlipidemia, unspecified; I25.5 Ischemic cardiomyopathy; Z88.8 Allergy status to other drugs, medicaments and biological substances; Z79.01 Long term (current) use of anticoagulants; Z79.02 Long term (current) use of antithrombotics/antiplatelets; Z79.82 Long term (current) use of aspirin; Z79.899 Other long term (current) drug therapy; Z82.49 Family history of ischemic heart disease and other diseases of the circulatory system; Z80.9 Family history of malignant neoplasm, unspecified; Z87.891 Personal history of nicotine dependence; Z95.810 Presence of automatic (implantable) cardiac defibrillator; I25.2 Old myocardial infarction
CPT/HCPCS: 36415; 80048; 80053; 80061; 82550; 82553; 83735; 84484; 85025; 85610; 85730; 93005; 93306; 93455; 96360; 96361; 99285

== ENCOUNTER 2017-02-27 17:10 | Inpatient (IN) | payer MEDICARE, OTHER ==
--- NOTE | 2017-02-27 17:58 | ED ---
General Adult HPI - General Chief complaint: Arrhythmia/Palpitations Stated complaint: Pacemaker misfiring Time Seen by Provider: 02/27/17 17:30 Source: patient, EMS, RN notes reviewed, old records reviewed Mode of arrival: EMS Limitations: no limitations - History of Present Illness Initial comments: This is a 72-year-old male to the ER for evaluation. Patient sent in as a transient patient were transfer patient for V. tach. Patient had the fibrillator is similar has got off an was interrogated found to be in V. tach. Patient himself is without pain without chest pain without any complaints. Patient states he has no recent change in medications. - Related Data Home Medications Medication Instructions Recorded Confirmed Isosorbide Mononitrate ER [Imdur] 60 mg PO DAILY 02/08/14 02/27/17 Losartan [Cozaar] 25 mg PO DAILY 02/08/14 02/27/17 Warfarin [Coumadin] 2.5 mg PO HS 03/24/16 02/27/17 Carvedilol [Coreg] 6.25 mg PO BID 12/11/16 02/27/17 Aspirin EC [Ecotrin Low Dose] 81 mg PO DAILY 02/27/17 02/27/17 Previous Rx's Medication Instructions Recorded Atorvastatin [Lipitor] 80 mg PO HS #30 tab 12/01/15 Clopidogrel [Plavix] 75 mg PO DAILY #100 tab 12/01/15 Nitroglycerin Sl Tabs [Nitrostat] 0.4 mg SUBLINGUAL Q5M PRN #25 tab 12/01/15 Spironolactone [Aldactone] 12.5 mg PO DAILY #30 tab 12/01/15 Allergies Allergy/AdvReac Type Severity Reaction Status Date / Time RUTH Inhibitors AdvReac Severe KIDNEY Verified 02/27/17 17:33 FAILURE Review of Systems ROS Statement: Those systems with pertinent positive or pertinent negative responses have been documented in the HPI. ROS Other: All systems not noted in ROS Statement are negative. Past Medical History Past Medical History: Atrial Fibrillation, Chest Pain / Angina, Eye Disorder, Hyperlipidemia, Hypertension, Myocardial Infarction ([place]), Renal Disease Additional Past Medical History / Comment(s): SEE DR PRASAD'S H&P. HX RENAL PROB R/T RUTH Inhibitors, STATES LEFT KIDNEY SMALLER THAN RIGHT, HAD RENAL FAILURE 2006-RESOLVED. CARDIOMYOPATHY. AAA, HAS YEARLY F/U. GLAUCOMA 2017 SeeCardiology H&P, Dr Prasad;s Last Myocardial Infarction Date:: 2010 History of Any Multi-Drug Resistant Organisms: None Reported Past Surgical History: AICD, Coronary Bypass/CABG, Heart Catheterization, Heart Catheterization With Stent Additional Past Surgical History / Comment(s): 1994 Cabg triple vessel. TOTAL OF 4 STENTS. LT CarOtid Endartectomy. GENERATOR CHANGE 09/20/14, AND 10-16-14 HAD REVISION OF TONSORIAL ARTIST. Past Anesthesia/Blood Transfusion Reactions: No Reported Reaction Additional Past Anesthesia/Blood Transfusion Reaction / Comment(s): Pt recieved blood with no reaction. Date of Last Stent Placement:: 11/2015 Type of Cardiac Device: AICD Device Placement Date:: 06/27/10,10-16-14 Past Psychological History: No Psychological Hx Reported Smoking Status: Former smoker Past Alcohol Use History: None Reported Past Drug Use History: None Reported - Past Family History Father Family Medical History: Congestive Heart Failure (CHF), Myocardial Infarction ( [place]) Mother Family Medical History: Cancer Additional Family Medical History / Comment(s): Mother of unknown cancer. General Exam Limitations: no limitations General appearance: alert, in no apparent distress Head exam: Present: atraumatic, normocephalic, normal inspection Eye exam: Present: normal appearance, PERRL, EOMI. Absent: scleral icterus, conjunctival injection, periorbital swelling ENT exam: Present: normal exam, mucous membranes moist Neck exam: Present: normal inspection. Absent: tenderness, meningismus, lymphadenopathy Respiratory exam: Present: normal lung sounds bilaterally. Absent: respiratory distress, wheezes, rales, rhonchi, stridor Cardiovascular Exam: Present: regular rate, normal rhythm, normal heart sounds. Absent: systolic murmur, diastolic murmur, rubs, gallop, clicks GI/Abdominal exam: Present: soft, normal bowel sounds. Absent: distended, tenderness, guarding, rebound, rigid Extremities exam: Present: normal inspection, full ROM, normal capillary refill. Absent: tenderness, pedal edema, joint swelling, calf tenderness Back exam: Present: normal inspection Neurological exam: Present: alert, oriented X3, CN II-XII intact Psychiatric exam: Present: normal affect, normal mood Skin exam: Present: warm, dry, intact, normal color. Absent: rash Course Vital Signs 02/27/17 17:21 Temperature 98.0 F Pulse Rate 67 Respiratory 18 Rate Blood Pressure 142/76 O2 Sat by Pulse 98 Oximetry - Reevaluation(s) Reevaluation #1: 02/27/17 17:58 Transferring paperwork is reviewed Medical Decision Making - Medical Decision Making 72 male the ER for evaluation regarding ventricular tachycardia, humidifier, patient will be admitted for cardiology evaluation and management Disposition Clinical Impression: Ventricular tachycardia Disposition: ADMITTED IP TO THIS HOSP Condition: Serious Referrals: Brii Canada DO [Primary Care Provider] - 1-2 days
[2017-02-27] MEDS ORDERED: MORPHINE SULFATE 2 MG/ML SYRINGE IV PRN (18:40)
[2017-02-27 20:23] VITALS: BMI 28.8
[2017-02-27 20:33] LABS: Creatine Kinase MB 2.2 ng/mL (0.0-2.4)
[2017-02-27 20:46] LABS: Troponin I 0.317 ng/mL (0.000-0.034)
[2017-02-27 21:22] LABS: HCT 41.2 % (39.0-53.0); MCH 28.5 pg (25.0-35.0); MCHC 31.5 g/dL (31.0-37.0); MCV 90.4 fL (80.0-100.0); Mean Platelet Volume 8.1; Platelet Count 173 k/uL (150-450); RBC 4.56 m/uL (4.30-5.90); RDW 15.9 % (11.5-15.5); WBC 6.5 k/uL (3.8-10.6)
[2017-02-27 21:24] LABS: INR 1.3 (<1.2); Prothrombin Time 11.9 sec (9.0-12.0)
[2017-02-27] MEDS ORDERED: NITROGLYCERIN SL TABS 0.4 MG TAB SUBLINGUAL PRN (21:28)
[2017-02-27 21:29] LABS: Calcium 9.4 mg/dL (8.4-10.2); Potassium 4.5 mmol/L (3.5-5.1)
[2017-02-27] MEDS ORDERED: HEPARIN SODIUM,PORCINE 5,000 UNIT/ML 1 ML VIAL IV PRN (21:34)
[2017-02-27] MEDS ORDERED: HEPARIN SODIUM,PORCINE 5,000 UNIT/ML 1 ML VIAL IV ONE (21:34)
[2017-02-27] MEDS ORDERED: ATORVASTATIN 80 MG TAB PO STA (21:39)
[2017-02-27] MEDS ORDERED: WARFARIN 2.5 MG TAB PO ONE (21:45)
[2017-02-27] MEDS: METOPROLOL TARTRATE 25 MG TAB PO SCH (22:27)
[2017-02-27] MEDS: HEPARIN SOD,PORK IN 0.45% NACL 25,000 UNIT in 0.45% NACL 1 500ML.BAG IV SCH (22:29)
[2017-02-28 02:28] LABS: Creatine Kinase MB 2.6 ng/mL (0.0-2.4); Troponin I 0.327 ng/mL (0.000-0.034)
[2017-02-28 06:02] LABS: Anisocytosis Slight; Basophils % (A) 1 %; Eosinophils # (A) 0.1 k/uL (0-0.7); Eosinophils % (A) 2 %; HCT 38.8 % (39.0-53.0); HGB 12.3 gm/dL (13.0-17.5); Lymphocytes # (A) 1.3 k/uL (1.0-4.8); Lymphocytes % (A) 22 %; MCH 28.5 pg (25.0-35.0); MCHC 31.8 g/dL (31.0-37.0); MCV 89.7 fL (80.0-100.0); Mean Platelet Volume 7.8; Monocytes # (A) 0.4 k/uL (0-1.0); Monocytes % (A) 6 %; Neutrophils # (A) 3.9 k/uL (1.3-7.7); Neutrophils % (A) 67 %; Platelet Count 157 k/uL (150-450); RBC 4.32 m/uL (4.30-5.90); RDW 16.1 % (11.5-15.5); WBC 5.8 k/uL (3.8-10.6)
[2017-02-28 06:09] LABS: INR 1.3 (<1.2); Partial Thromboplastin Time 43.7 sec (22.0-30.0); Prothrombin Time 12.2 sec (9.0-12.0)
[2017-02-28 06:16] LABS: Albumin 3.4 g/dL (3.5-5.0); Total Bilirubin 0.7 mg/dL (0.2-1.3); Total Protein 5.9 g/dL (6.3-8.2)
[2017-02-28 07:44] LABS: Calcium 9.3 mg/dL (8.4-10.2); Potassium 4.5 mmol/L (3.5-5.1)
[2017-02-28] MEDS ORDERED: ASPIRIN 325 MG TAB PO SCH (09:00)
[2017-02-28] MEDS: ISOSORBIDE MONONITRATE ER 60 MG TAB.ER.24H PO SCH (09:59)
[2017-02-28] MEDS: LOSARTAN 25 MG TAB PO SCH (09:59)
[2017-02-28] MEDS: SPIRONOLACTONE 25 MG TAB PO SCH (09:59)
[2017-02-28] MEDS: METOPROLOL TARTRATE 25 MG TAB PO SCH ×2 (09:59→20:06)
[2017-02-28] MEDS: ASPIRIN 81 MG PO SCH (09:59)
[2017-02-28] MEDS: CLOPIDOGREL 75 MG TAB PO SCH (09:59)
--- NOTE | 2017-02-28 12:03 | HP ---
HISTORY AND PHYSICAL CHIEF COMPLAINT: A 72-year-old white male who was admitted to our hospital after being transferred to the hospital for ventricular tachycardia. He apparently had his AICD go off at which time he was brought to the hospital for further workup with Cardiology. Transferred from the hospital. MEDICATIONS: Home medications include: 1. Imdur 60 mg daily. 2. Cozaar 25 mg daily. 3. Coumadin 2.5 mg daily. 4. Coreg 6.25 b.i.d. 5. Aspirin 81 mg daily. 6. Nitroglycerin sublingual 0.4 mg p.r.n. 7. Aldactone 12.5 mg daily. ALLERGIES: Allergies are to RUTH INHIBITORS. REVIEW OF SYSTEMS: Fourteen-point review of systems negative except for as mentioned in HPI. PAST MEDICAL HISTORY: Atrial fibrillation, angina, dyslipidemia, hypertension, myocardial infarction, renal disease, cardiomyopathy, AAA, glaucoma. SURGICAL HISTORY: AICD, CABG, heart catheterization with stent, CABG triple-vessel disease 4 stents, carotid endarterectomy. SOCIAL HISTORY: Former smoker. No alcohol. No illicit drugs. FAMILY HISTORY: Father with congestive heart failure, myocardial infarction. Mother with cancer. PHYSICAL EXAM: Temp 98, pulse 60 to 67, respiration 12 to 18, blood pressure 140s over 70s, O2 of 98% on room air. CONSTITUTIONAL: Was alert, giving appropriate answers. No acute distress. HEAD: Normocephalic, atraumatic. CARDIOVASCULAR: Irregular, irregular rhythm. Lungs are clear. GI: Soft, nontender, and slight distention due to obesity. EXTREMITIES: No cyanosis, clubbing, edema. BACK: Normal to inspection. NEUROLOGIC: Cranial nerves are intact. PSYCH: Fair mood and affect. SKIN: Warm, dry, intact. ASSESSMENT: 1. Ventricular tachycardia. 2. History of hypertension. 3. Coronary artery disease. 4. Atrial fibrillation. 5. History of CABG. 6. History of carotid endarterectomy. 7. History of renal insufficiency. 8. Chronic kidney disease. Please see further orders, await cardiology consultation. MMODL / IJN: [id number] /
--- NOTE | 2017-02-28 12:13 | P.CRDCN ---
History of Present Illness Consult date: 02/28/17 Requesting physician: Migel Duong Reason for Consult (text): VT Chief complaint: shock from defibrillator History of present illness: This is a pleasant 71-year-old gentleman known history of CAD, recent KS with stent placement to the vein graft to the circumflex, ischemic cardiomyopathy, status post AICD, known ejection fraction less than 20%, history of ventricular tachycardia who was scheduled to undergo VT ablation by Dr. Prasad last week. VT ablation was postponed due to admission for an KS. He presented to the emergency department at [facility] with complaints of dizziness and feeling his defibrillator discharge. Upon interrogation he was found to have episodes of VT treated with ATP and he did receive one shock prior to admission. He was also found to have episodes of VT treated with ATP and one episode of VT treated with ATP and 31 J shock on 01/29/2017 which patient was unaware however in speaking with the patient and his he may have lost consciousness prior to receiving the shot as he felt very dizzy and fell. Return evaluation on 1 of 0.317 and 0.3-7, peaked at 8.060 on the eighth during Admission for KS. He G shows paced rhythm. Upon examination, patient is resting comfortably in bed. He is feeling fairly well at this time. He denies having any chest discomfort prior to admission only complaints of dizziness, palpitations and ICD discharge. He's had no shortness of breath. Past Medical History Past Medical History: Atrial Fibrillation, Chest Pain / Angina, Eye Disorder, Hyperlipidemia, Hypertension, Myocardial Infarction (KS), Renal Disease Additional Past Medical History / Comment(s): SEE DR PRASAD'S H&P. HX RENAL PROB R/T RUTH Inhibitors, STATES LEFT KIDNEY SMALLER THAN RIGHT, HAD RENAL FAILURE 2006-RESOLVED. CARDIOMYOPATHY. AAA, HAS YEARLY F/U. GLAUCOMA 2017 SeeCardiology H&P, Dr Prasad;s Last Myocardial Infarction Date:: 02/23/2017 History of Any Multi-Drug Resistant Organisms: None Reported Past Surgical History: AICD, Coronary Bypass/CABG, Heart Catheterization, Heart Catheterization With Stent, Pacemaker Additional Past Surgical History / Comment(s): 1994 Cabg triple vessel. TOTAL OF 5 STENTS. LT Carotid Endartectomy. 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 Past Anesthesia/Blood Transfusion Reactions: No Reported Reaction Additional Past Anesthesia/Blood Transfusion Reaction / Comment(s): Pt recieved blood with no reaction. Date of Last Stent Placement:: 02/23/2017 Type of Cardiac Device: Permanent Pacemaker, AICD Device Placement Date:: 06/27/10,10-16-14 Past Psychological History: No Psychological Hx Reported Additional Psychological History / Comment(s): Pt lives with at home. Pt is independent . Pt is retired FROM THE [employer]. He drives a car. Smoking Status: Former smoker Past Alcohol Use History: None Reported Additional Past Alcohol Use History / Comment(s): STARTED SMOKING AT AGE 17, SMOKED 1 PPD, QUIT 2006 Past Drug Use History: None Reported - Past Family History Father Family Medical History: Congestive Heart Failure (CHF), Myocardial Infarction ( KS) Mother Family Medical History: Cancer Additional Family Medical History / Comment(s): Mother of unknown cancer. Medications and Allergies Home Medications Medication Instructions Recorded Confirmed Type Isosorbide Mononitrate ER [Imdur] 60 mg PO DAILY 02/08/14 02/27/17 History Losartan [Cozaar] 25 mg PO DAILY 02/08/14 02/27/17 History Atorvastatin [Lipitor] 80 mg PO HS #30 tab 12/01/15 02/27/17 Rx Clopidogrel [Plavix] 75 mg PO DAILY #100 tab 12/01/15 02/27/17 Rx Nitroglycerin Sl Tabs [Nitrostat] 0.4 mg SUBLINGUAL Q5M PRN #25 tab 12/01/1502/02 Rx Spironolactone [Aldactone] 12.5 mg PO DAILY #30 tab 12/01/15 02/27/17 Rx Warfarin [Coumadin] 2.5 mg PO HS 03/24/16 02/27/17 History Carvedilol [Coreg] 6.25 mg PO BID 12/11/16 02/27/17 History Aspirin EC [Ecotrin Low Dose] 81 mg PO DAILY 02/27/17 02/27/17 History Allergies Allergy/AdvReac Type Severity Reaction Status Date / Time RUTH Inhibitors AdvReac Severe KIDNEY Verified 02/27/17 20:12 FAILURE Physical Exam Vitals: Vital Signs Temp Pulse Pulse Resp BP BP Pulse Ox 02/28/17 08:00 98.0 F 57 L 18 131/75 99 02/28/17 04:00 97.8 F 52 L 17 134/76 95 02/28/17 00:00 97.1 F L 64 18 129/77 98 02/27/17 22:22 100 02/27/17 19:14 97.4 F L 66 17 142/72 100 02/27/17 17:21 98.0 F 67 18 142/76 98 Intake and Output 02/27/17 02/28/17 02/28/17 22:59 06:59 14:59 Intake Total 374 180 Output Total 300 300 Balance -300 74 180 Intake: IV 210 0.9 70 Heparin Sod,Pork in 0.45% 140 NaCl 25,000 unit In 0.45 % NaCl 1 500ml.bag @ 10. 65 UNITS/KG/HR 20 mls/hr IV .Q24H LETHA Rx#: [id number] Intake, IV Titration 164 Amount Heparin Sod,Pork in 0.45% 164 NaCl 25,000 unit In 0.45 % NaCl 1 500ml.bag @ 10. 65 UNITS/KG/HR 20 mls/hr IV .Q24H LETHA Rx#: [id number] Oral 180 Output: Urine 300 300 Other: Voiding Method Toilet # Voids 1 Weight 93.9 kg 93.2 kg PHYSICAL EXAMINATION: HEENT: Head is atraumatic, normocephalic. Pupils equal, round. Neck is supple. There is no elevated jugular venous pressure. HEART EXAMINATION: Heart sounds regular, S1 and S2 with a systolic murmur. CHEST EXAMINATION: Lungs are clear to auscultation and precussion. No chest wall tenderness is noted on palpation or with deep breathing. ABDOMEN: Soft, nontender. Bowel sounds are heard. No organomegaly noted. EXTREMITIES: 2+ peripheral pulses with no evidence of peripheral edema and no calf tenderness noted. NEUROLOGIC patient is awake, alert and oriented x3. . Results 02/28/17 05:26 02/28/17 05:26 Cardiac Enzymes 02/27/17 02/28/17 02/28/17 Range/Units 19:49 01:21 05:26 AST 36 (17-59) U/L CK-MB (CK-2) 2.2 2.6 H* (0.0-2.4) ng/mL Troponin I 0.317 H* 0.327 H* (0.000-0.034) ng/mL Coagulation 02/27/17 02/28/17 Range/Units 21:03 05:26 PT 11.9 12.2 H (9.0-12.0) sec APTT 43.7 H (22.0-30.0) sec Lipids 02/28/17 Range/Units 05:26 Triglycerides 76 (<150) mg/dL Cholesterol 113 (<200) mg/dL HDL Cholesterol 34 L (40-60) mg/dL CBC 02/27/17 02/28/17 Range/Units 21:03 05:26 WBC 6.5 5.8 (3.8-10.6) k/uL RBC 4.56 4.32 (4.30-5.90) m/uL Hgb 13.0 12.3 L (13.0-17.5) gm/dL Hct 41.2 38.8 L (39.0-53.0) % Plt Count 173 157 (150-450) k/uL Comprehensive Metabolic Panel 02/27/17 02/28/17 Range/Units 21:03 05:26 Sodium 143 142 (137-145) mmol/L Potassium 4.5 4.5 (3.5-5.1) mmol/L Chloride 106 110 H (98-107) mmol/L Carbon Dioxide 26 24 (22-30) mmol/L BUN 32 H 30 H (9-20) mg/dL Creatinine 1.60 H 1.60 H (0.66-1.25) mg/dL Glucose 99 94 (74-99) mg/dL Calcium 9.4 9.3 (8.4-10.2) mg/dL AST 36 (17-59) U/L ALT 30 (21-72) U/L Alkaline Phosphatase 63 (38-126) U/L Total Protein 5.9 L (6.3-8.2) g/dL Albumin 3.4 L (3.5-5.0) g/dL Current Medications Generic Name Dose Route Start Last Admin Trade Name Freq PRN Reason Stop Dose Admin Aspirin 81 mg 02/28/17 09:00 02/28/17 09:59 Aspirin PO 81 mg DAILY LETHA Administration Atorvastatin Calcium 80 mg 02/28/17 21:00 Lipitor PO HS [facility] Clopidogrel Bisulfate 75 mg 02/28/17 09:00 02/28/17 09:59 Plavix PO 75 mg DAILY LETHA Administration Heparin Sodium (Porcine) 0 unit 02/27/17 21:34 Heparin IV PER PROTOCOL PRN Low PTT Protocol Heparin Sodium/Sodium Chloride 500 mls @ 20 mls/hr 02/27/17 21:45 02/28/17 06 :41 25,000 unit/ Sodium Chloride IV 12.65 units/kg/hr .Q24H LETHA 23.75 mls/hr Protocol Titration 10.65 UNITS/KG/HR Isosorbide Mononitrate 60 mg 02/28/17 09:00 02/28/17 09:59 Imdur PO 60 mg DAILY LETHA Administration Losartan Potassium 25 mg 02/28/17 09:00 02/28/17 09:59 Cozaar PO 25 mg DAILY LETHA Administration Metoprolol Tartrate 25 mg 02/27/17 21:00 02/28/17 09:59 Lopressor PO 25 mg BID LETHA Administration Morphine Sulfate 4 mg 02/27/17 18:40 Morphine Sulfate (Inj) IV Q5M PRN Chest Pain Nitroglycerin 0.4 mg 02/27/17 21:28 Nitrostat SUBLINGUAL Q5M PRN Chest Pain Spironolactone 12.5 mg 02/28/17 09:00 02/28/17 09:59 Aldactone PO 12.5 mg DAILY LETHA Administration Warfarin Sodium 2.5 mg 02/28/17 21:00 Coumadin PO HS [facility] Intake and Output 02/27/17 02/28/17 02/28/17 22:59 06:59 14:59 Intake Total 374 180 Output Total 300 300 Balance -300 74 180 Intake: IV 210 0.9 70 Heparin Sod,Pork in 0.45% 140 NaCl 25,000 unit In 0.45 % NaCl 1 500ml.bag @ 10. 65 UNITS/KG/HR 20 mls/hr IV .Q24H LETHA Rx#: [id number] Intake, IV Titration 164 Amount Heparin Sod,Pork in 0.45% 164 NaCl 25,000 unit In 0.45 % NaCl 1 500ml.bag @ 10. 65 UNITS/KG/HR 20 mls/hr IV .Q24H LETHA Rx#: [id number] Oral 180 Output: Urine 300 300 Other: Voiding Method Toilet # Voids 1 Weight 93.9 kg 93.2 kg 02/28/17 05:26 01/13/18 05:26 EKG Interpretations (text) Ventricular paced rhythm Assessment and Plan Assessment: #1 ventricular tachycardia #2 coronary artery disease with recent KS and stent placement to the vein graft to left circumflex #3 severe ischemic cardiomyopathy #4 hypertension Plan: From Mussel Opener perspective, we will add amiodarone 200 mg by mouth twice a day. Continue beta kelsie. We'll continue to monitor the patient provide further recommendations accordingly. CIGAR PACKER AND SHADER note has been reviewed, I agree with a documented findings and plan of care. Patient was seen and examined.
[2017-02-28 12:40] LABS: Hemoglobin A1C 5.7 % (4.0-6.0)
[2017-02-28] MEDS: AMIODARONE 200 MG TAB PO SCH ×2 (13:41→20:05)
[2017-02-28] MEDS: HEPARIN SOD,PORK IN 0.45% NACL 25,000 UNIT in 0.45% NACL 1 500ML.BAG IV SCH (19:46)
[2017-02-28] MEDS: ATORVASTATIN 80 MG TAB PO SCH (20:05)
[2017-02-28] MEDS: WARFARIN 2.5 MG TAB PO SCH (20:06)
[2017-03-01 06:29] LABS: Basophils % (A) 1 %; Eosinophils # (A) 0.1 k/uL (0-0.7); Eosinophils % (A) 1 %; HCT 39.3 % (39.0-53.0); HGB 12.5 gm/dL (13.0-17.5); Lymphocytes # (A) 1.2 k/uL (1.0-4.8); Lymphocytes % (A) 20 %; MCH 28.8 pg (25.0-35.0); MCHC 31.7 g/dL (31.0-37.0); MCV 90.7 fL (80.0-100.0); Mean Platelet Volume 7.4; Monocytes # (A) 0.4 k/uL (0-1.0); Monocytes % (A) 6 %; Neutrophils # (A) 4.2 k/uL (1.3-7.7); Neutrophils % (A) 70 %; Platelet Count 170 k/uL (150-450); RBC 4.33 m/uL (4.30-5.90); RDW 14.4 % (11.5-15.5); WBC 5.9 k/uL (3.8-10.6)
[2017-03-01 06:41] LABS: INR 1.5 (<1.2); Partial Thromboplastin Time 95.6 sec (22.0-30.0); Prothrombin Time 14.1 sec (9.0-12.0)
[2017-03-01 06:45] LABS: Calcium 9.5 mg/dL (8.4-10.2); Potassium 4.5 mmol/L (3.5-5.1)
[2017-03-01] MEDS: LOSARTAN 25 MG TAB PO SCH (07:45)
[2017-03-01] MEDS: ISOSORBIDE MONONITRATE ER 60 MG TAB.ER.24H PO SCH (07:45)
[2017-03-01] MEDS: CLOPIDOGREL 75 MG TAB PO SCH (07:45)
[2017-03-01] MEDS: ASPIRIN 81 MG PO SCH (07:45)
[2017-03-01] MEDS: METOPROLOL TARTRATE 25 MG TAB PO SCH (07:45)
[2017-03-01] MEDS: AMIODARONE 200 MG TAB PO SCH ×2 (07:45→21:25)
[2017-03-01] MEDS: SPIRONOLACTONE 25 MG TAB PO SCH (07:46)
--- NOTE | 2017-03-01 14:43 | PN ---
PROGRESS NOTE Mr. Prado is a 72-year-old male known history of severe ischemic cardiomyopathy, status post bypass coronary artery bypass grafting, status post recent percutaneous revascularization, who presented with a discharge from his device with ventricular tachycardia. He is doing well today, ambulating without difficulty. Denying any chest pain. No dizziness. No palpitation. No nausea. He denies any cough or fever. He continues to be on amiodarone 40 mg twice a day, aspirin once a day, Lipitor 80 mg daily, Plavix 75 mg daily, IV heparin, isosorbide mononitrate 60 mg daily, losartan 25 mg daily, metoprolol tartrate 25 mg twice a day, and spironolactone 12.5 mg daily in addition to Coumadin. PHYSICAL EXAMINATION: Blood pressure 133/70 with a heart rate in the 50s. LUNGS: Clear. HEART: Regular rate and rhythm S1, S2. No S3 with systolic murmur and diastolic murmur. No rub. ABDOMEN: Soft, nontender. EXTREMITIES: No edema. LAB DATA: With an INR of 1.5. BUN and creatinine 25 and 1.7. IMPRESSION: 1. Status post recent percutaneous revascularization. 2. Discharge from his ICD. 3. Ischemic cardiomyopathy. 4. Status post coronary artery bypass grafting. 5. Hypertension. 6. Hyperlipidemia. 7. Chronic kidney disease. RECOMMENDATION: We will continue on the amiodarone that was added. Increase his activity. If he remains stable, I would expect he should be able to be discharged home tomorrow and readmitted in about a week or so to undergo ablation of his ventricular tachycardia. MMODL / IJN: [id number] /
--- NOTE | 2017-03-01 18:28 | PN ---
PROGRESS NOTE SUBJECTIVE: This is a white male admitted with ventricular tachycardia, severe ischemic cardiomyopathy, status post CABG surgery. He is started on amiodarone. He has been monitored by Cardiology. CARDIOVASCULAR: S1, S2. LUNGS: Clear. GI: Soft. HEMATOLOGY: Negative Homans. INR 1.5, BUN 24, creatinine 1.7. Status post percutaneous revascularization, discharge from ICD, ischemic cardiomyopathy, status post CABG, hypertension, dyslipidemia. Continue with amiodarone. Increase activity. Possible discharge home tomorrow. MMODL / IJN: [id number] /
[2017-03-01] MEDS: WARFARIN 2.5 MG TAB PO SCH (21:25)
[2017-03-01] MEDS: ATORVASTATIN 80 MG TAB PO SCH (21:25)
[2017-03-02] MEDS: METOPROLOL TARTRATE 25 MG TAB PO SCH ×2 (00:20→07:59)
[2017-03-02 04:59] VITALS: TEMP 97
[2017-03-02 06:59] LABS: Basophils % (A) 1 %; Eosinophils # (A) 0.1 k/uL (0-0.7); Eosinophils % (A) 2 %; HCT 38.4 % (39.0-53.0); HGB 12.1 gm/dL (13.0-17.5); Lymphocytes % (A) 19 %; MCH 28.4 pg (25.0-35.0); MCHC 31.4 g/dL (31.0-37.0); MCV 90.3 fL (80.0-100.0); Mean Platelet Volume 7.7; Monocytes # (A) 0.3 k/uL (0-1.0); Monocytes % (A) 6 %; Neutrophils # (A) 3.6 k/uL (1.3-7.7); Neutrophils % (A) 71 %; Platelet Count 165 k/uL (150-450); RBC 4.26 m/uL (4.30-5.90); RDW 15.8 % (11.5-15.5); WBC 5.1 k/uL (3.8-10.6)
[2017-03-02 07:03] LABS: INR 1.6 (<1.2); Prothrombin Time 15.2 sec (9.0-12.0)
[2017-03-02 07:35] LABS: Calcium 9.4 mg/dL (8.4-10.2); Potassium 4.6 mmol/L (3.5-5.1)
[2017-03-02] MEDS: AMIODARONE 200 MG TAB PO SCH (07:58)
[2017-03-02] MEDS: CLOPIDOGREL 75 MG TAB PO SCH (07:59)
[2017-03-02] MEDS: LOSARTAN 25 MG TAB PO SCH (07:59)
[2017-03-02] MEDS: ASPIRIN 81 MG PO SCH (07:59)
[2017-03-02] MEDS: ISOSORBIDE MONONITRATE ER 60 MG TAB.ER.24H PO SCH (07:59)
[2017-03-02] MEDS: SPIRONOLACTONE 25 MG TAB PO SCH (08:06)
--- NOTE | 2017-03-02 10:02 | CDI ---
Last Revision, January 2017 Documentation Clarification Form Date: 03/02/2017 9:40:00 AM From: Padmini Choudhury RN, CCDS Admit Date: 02/27/2017 6:40:00 PM Patient Name: Kofi Prado Visit Number: [id number] ATTENTION: The Clinical Documentation Specialists (CDI) and [facility] Coding Staff appreciate your assistance in clarifying documentation. Please respond to the clarification below the line at the bottom and electronically sign. The CDI & [facility] Coding staff will review the response and follow-up if needed. Please note: Queries are made part of the Legal Health Record. If you have any questions, please contact the author of this message via ITS. Dr. Migel Duong History/Risk Factors: Atrial Fib, VT, CABG, AICD, ischemic cardiomyopathy, HTN, AAA, DE. PTCA, CEA Clinical Indicators: H&P: Chronic kidney disease Current BUN: 30/25 CR: 1.6/1.7/1.72 GFR: 43/40/39 02/22/17 Patients Baseline: BUN/CR/GFR: 30/1.7/40 Treatment: Patients medications include: Imdur 60 mg PO QD, Cozaar 25 mg PO QD, Lopressor 25mg PO BID, Aldactone 12.5 mg PO QD IVF: none given In order to capture the severity of condition, please clarify if the condition signifies: CKD Stage 1 (GFR > 90) CKD Stage 2 (GFR 60-89) CKD Stage 3 (GFR 30-59) CKD Stage 4 (GFR 15-29) CKD Stage 5 (GFR <15) ESRD Other, please specify Unable to determine Please continue to document in your progress notes and discharge summary in order to capture severity of illness and risk of mortality. Include clinical findings that support your diagnosis. MTDD
--- NOTE | 2017-03-02 10:12 | CDI ---
Last Revision, January 2017 Documentation Clarification Form Date: 03/02/2017 10:02:00 AM From: Padmini Choudhury RN, CCDS Admit Date: 02/27/2017 6:40:00 PM Patient Name: Kofi Prado Visit Number: [id number] ATTENTION: The Clinical Documentation Specialists (CDI) and [facility] Coding Staff appreciate your assistance in clarifying documentation. Please respond to the clarification below the line at the bottom and electronically sign. The CDI & [facility] Coding staff will review the response and follow-up if needed. Please note: Queries are made part of the Legal Health Record. If you have any questions, please contact the author of this message via ITS. Dr. Az Avitia Atrial fibrillation is documented in the H History/Risk Factors: ischemic cardiomyopathy, AICD, VF, atrial fib, CABG, PTCA, MO, HTN Clinical Indicators: EKG/telemetry: v-paced Treatment: ASA 81 mg PO QD , Coumadin, Plavix 75 mg PO QD, [id number] mg PO BID, Amiodarone 400 mg PO BID Consults: Cardiology In your professional opinion, can you please clarify the type of atrial fibrillation, if known? Chronic/Permanent Paroxysmal X Persistent Other, please specify Unable to determine Please continue to document in your progress notes and discharge summary in order to capture severity of illness and risk of mortality. Include clinical findings that support your diagnosis. MTDD
--- NOTE | 2017-03-02 12:52 | PN ---
PROGRESS NOTE HISTORY: Mr. Prado is a 72-year-old male with a history of severe ischemic cardiomyopathy, who recently underwent stenting of the saphenous vein graft to the circumflex, history of ICD implant, who presented with discharge from his device. He is doing well this morning, ambulating without difficulty. Denying any chest pain. No dizziness. No palpitation. No nausea. He continues on amiodarone 400 mg twice a day, aspirin once a day, Lipitor 80 mg daily, Plavix 75 mg daily, isosorbide mononitrate 60 mg daily, metoprolol tartrate 25 mg twice a day, losartan 25 mg daily, spironolactone 12 .5 mg daily, and Coumadin. PHYSICAL EXAMINATION: Blood pressure 125/70 with a heart in 50s. LUNGS: Clear. HEART: Regular rhythm S1, S2. No S3 with systolic murmur. No diastolic murmur. ABDOMEN: Soft, nontender. EXTREMITIES: No edema. LAB DATA: BUN and creatinine of 25 and 1.72. INR of 1.6, hemoglobin 12.1. IMPRESSION: 1. Status post discharge from the device for ventricular tachycardia. 2. History of severe ischemic cardiomyopathy. 3. Status post recent myocardial infarction. 4. Chronic kidney disease. 5. Paroxysmal atrial fibrillation. RECOMMENDATION: Patient should be able to be discharged home today. He has an appointment to see Dr. Bruce tomorrow. He will continue on present dose of amiodarone and subsequently be re-admitted to undergo VT ablation. MMODL / IJN: [id number] /
--- NOTE | 2017-03-02 13:05 | DS ---
DISCHARGE SUMMARY DISCHARGE MEDICATIONS: 1. Cordarone 400 mg b.i.d. 2. Aspirin 81 mg daily. 3. Lipitor 80 mg daily. 4. Plavix 75 mg daily. 5. Imdur 60 mg daily. 6. Losartan 25 mg daily. 7. Metoprolol 25 b.i.d. 8. Spironolactone 12.5 daily. 9. Warfarin 2.5 mg daily. CONDITION: Stable. PROGNOSIS: Guarded. Ambulate as tolerated. DISCHARGE DIAGNOSES: 1. Ventricular tachycardia. 2. Coronary artery disease with recent myocardial infarction and stent placement to the vein graft to the left circumflex. 3. Severe ischemic cardiomyopathy. 4. Hypertension. 5. Defibrillator shock. HOSPITAL COURSE OF EVENTS: This is a white male who was admitted on monitor for 2 to 3 days. The ICD device is examined. Amiodarone 200 mg b.i.d. was given for arrhythmias. He is continued on his beta kelsie, No cardiac events were seen. He also had chronic renal disease stage 3. EKG showed ventricular paced rhythm. Stabilized by Cardiology and sent home in stable condition to follow up as an outpatient. MMHOPEL / BRANDAN: [id number] /
[2017-03-02 14:02] VITALS: BP 115/67; PULSE 50; RESP 18
== END 2017-03-02 15:13 | disposition home or self-care (01) | DRG 310 ==
LOC: EC 17:10 → 6SEL 18:40
PROVIDERS: ADMIT Family Medicine; ATTEND Family Medicine
DX: I47.2 Ventricular tachycardia (principal); N18.3 Chronic kidney disease, stage 3 (moderate); I25.5 Ischemic cardiomyopathy; Z95.1 Presence of aortocoronary bypass graft; I25.10 Atherosclerotic heart disease of native coronary artery without angina pectoris; E78.5 Hyperlipidemia, unspecified; H40.9 Unspecified glaucoma; I48.0 Paroxysmal atrial fibrillation; I12.9 Hypertensive chronic kidney disease with stage 1 through stage 4 chronic kidney disease, or unspecified chronic kidney disease; Z79.01 Long term (current) use of anticoagulants; Z79.899 Other long term (current) drug therapy; Z79.82 Long term (current) use of aspirin; Z95.810 Presence of automatic (implantable) cardiac defibrillator; I25.2 Old myocardial infarction; Z87.891 Personal history of nicotine dependence; Z82.49 Family history of ischemic heart disease and other diseases of the circulatory system; Z80.9 Family history of malignant neoplasm, unspecified; Z79.02 Long term (current) use of antithrombotics/antiplatelets
CPT/HCPCS: 80048; 80053; 80061; 82550; 82553; 83036; 84443; 84484; 85025; 85027; 85610; 85730; 94760; 99285

== ENCOUNTER → 2017-03-05 | Day surgery (SDC) | payer MEDICARE, OTHER ==
[2017-03-04 08:37] VITALS: BMI 28.5
[~2017-03-05] MED LIST changes: -LACTATED RINGERS 1,000 ML IV SCH; +MEXILETINE 150 MG CAP PO STA; +RX INFO: IV CONTRAST WAS GIVEN 1 EACH MISC MISCELLANE PRN; +SODIUM CHLORIDE 0.9% 1,000 ML IV ONE
[2017-03-05 07:40] LABS: INR 1.6 (<1.2); Prothrombin Time 14.8 sec (9.0-12.0)
[2017-03-05 07:52] VITALS: BP 131/70; PULSE 63; RESP 20; TEMP 97.8
--- NOTE | 2017-03-05 08:46 | P.PN ---
Progress Note - Text Patient scheduled for scar based VT ablation/ischemic heart disease with recurrent V. tach ICD therapies and shocks despite oral amiodarone Recent coronary stent but despite that he came back once again with an ICD shock Came in today for VT ablation his groins have not healed well. He has extensive bruising in both groins left greater than right with a large hard swelling over the left femoral artery and a small swelling over the right femoral artery. The arteries are palpable in the right groin and the left groin had to use a Doppler to detect the flow He is canceled on account of increased risk of progressive/further vascular injury during the VT ablation which will involve high-dose IV heparin for several hours Doppler study of the groins to rule out pseudoaneurysm I will schedule him for CT angiogram of the aorta and bilateral lower extremities to plan VT ablation via retrograde route Increased creatinine. We will give IV fluids to 50 mL for the procedure and will recheck BUN/creatinine in 2-3 days Mexiletine 150 mg 3 times a day until his VT ablation. I will delay the VT ablation for about 6 weeks until his groins healing up otherwise he has increased risk of groin and vascular injuries and complications secondary to the procedure
--- NOTE | 2017-03-05 09:41 | US ---
EXAMINATION TYPE: US groin LT DATE OF EXAM: 03/05/2017 COMPARISON: NONE CLINICAL HISTORY: left groin hematoma. Bilateral groin. Patient states having a heart cath x 1 week ago. Patient states unable to go through one groin, then approached the next. Bruising seen. Palpa ble hardness felt in area. Bilateral groin scanned. In right groin, no discreet masses or lesions seen. In left groin, complex lesion seen, nonvascular = 3.2 x 4.0 x 2.3 cm. Lesion not seen adjacent to DRIED YEAST SUPERVISOR or CFV. IMPRESSION: No evidence for pseudoaneurysm.
--- NOTE | 2017-03-05 10:57 | CT ---
EXAMINATION TYPE: CT angio abd aorta wo/w con DATE OF EXAM: 03/05/2017 10:04 AM COMPARISON: NONE HISTORY: Groin swelling CT DLP: 1495.4 mGycm Automated exposure control for dose reduction was used. TECHNIQUE: Performed without and with IV Contrast, patient injected with 100 mL of Visipaque 320. CTA of the abd ominal aorta and runoff vessels up to the knees was performed as requested by the ordering physician. 3-D reconstruction was obtained at a separate workstation. FINDINGS: Multiple hepatic cysts noted. Small layering gallstones noted. Atrophic change left kidney. Parapelvic cyst right kidney. Left inguinal hernia contains a short segment of colon. Severe degenerative change lumbar spine. Abdominal aorta: Infrarenal abdominal aortic aneurysm measuring 3.2 cm. Irregular soft plaque with ar eas of calcified plaque. Small dissection distal abdominal aorta seen best on axial images 68 through 78. Iliac vessels: There is high-grade stenosis involving the right common iliac artery with luminal narr owing estimated at greater than 90%. There is a calcified and soft plaque noted. Severe multifocal di sease throughout the course of the right common iliac artery. High-grade stenosis also noted to invol ve the take off of the left common iliac artery estimated at greater than 90%. Multifocal disease not ed. Mild external iliac artery plaque noted with luminal narrowing up to 50% bilaterally. Femoral arteries: Multifocal bilateral disease left greater than right extending up to the bifurcatio n. On the left other areas of the moderate soft plaque. Predominantly calcified plaque right femoral artery with luminal narrowing bilaterally estimated at 50% on the right and greater than 70% on the l eft. On the right at the level of the bifurcation there is diameter reduction estimated at 70%. Multi focal disease is seen involving the superficial femoral arteries bilaterally with the estimated diame ter reduction of at least 50% bilaterally. Left groin hematoma noted. . IMPRESSION: 1. Multifocal luminal narrowing involving the common iliacs, external iliacs and femoral arteries reza aterally as outlined above. 2. I Cannot exclude a small dissection distal abdominal aorta with mild aneurysm. 3. Atrophic change left kidney.
== END | disposition home or self-care (01) ==
LOC: CATHEP 06:11
PROVIDERS: ATTEND Internal Medicine Clinical Cardiac Electrophysiology
DX: I47.2 Ventricular tachycardia (principal); L76.32 Postprocedural hematoma of skin and subcutaneous tissue following other procedure; I77.1 Stricture of artery; I25.10 Atherosclerotic heart disease of native coronary artery without angina pectoris; I11.9 Hypertensive heart disease without heart failure; Z87.891 Personal history of nicotine dependence; E78.5 Hyperlipidemia, unspecified; Z95.1 Presence of aortocoronary bypass graft; Z95.5 Presence of coronary angioplasty implant and graft; Z95.810 Presence of automatic (implantable) cardiac defibrillator; Z79.01 Long term (current) use of anticoagulants; Z79.82 Long term (current) use of aspirin; Z79.899 Other long term (current) drug therapy; Z88.8 Allergy status to other drugs, medicaments and biological substances
CPT/HCPCS: 85610; 76882 ×2; 75635; Q9967

== ENCOUNTER 2017-04-07 09:09 | Day surgery (SDC) | payer MEDICARE, OTHER ==
[2017-04-02 11:24] VITALS: BMI 28.5
[2017-04-07] MEDS: SODIUM CHLORIDE 0.9% 1,000 ML IV SCH (09:55)
[2017-04-07 10:10] LABS: Prothrombin Time 18.3 sec (9.0-12.0)
[2017-04-07] MEDS ORDERED: ceFAZolin 2,000 MG in DEXTROSE/WATER 1 50ML.BAG IVPB STA (10:41)
[2017-04-07] MEDS ORDERED: ceFAZolin IN SWFI 2 GM/20 ML SYRINGE IVP STA (10:45)
[2017-04-07] MEDS ORDERED: PHENYLEPHRINE-0.9% NACL SYG 1 MG/10 ML SYRINGE ONE (12:05)
[2017-04-07] MEDS ORDERED: MIDAZOLAM 2 MG/2 ML VIAL ONE (12:05)
[2017-04-07] MEDS ORDERED: ONDANSETRON 4 MG/2 ML VIAL ONE (12:05)
[2017-04-07] MEDS ORDERED: fentaNYL (PF) 50 MCG/ML 2 ML AMP ONE (12:05)
[2017-04-07] MEDS ORDERED: ePHEDrine SULFATE/0.9% NACL/PF 50 MG/5 ML SYRINGE IV ONE (12:05)
[2017-04-07] MEDS ORDERED: PROTAMINE SULFATE 10 MG/ML 5 ML VIAL IV ONE (12:05)
[2017-04-07] MEDS ORDERED: HEPARIN SODIUM,PORCINE 10,000 UNIT/ML 1 ML VIAL ONE (12:05)
[2017-04-07] MEDS ORDERED: PROPOFOL 10 MG/ML 20 ML VIAL IV ONE (12:05)
[2017-04-07] MEDS ORDERED: LIDOCAINE URO-JET JELLY 2% 5 ML KIT ONE (12:27)
[2017-04-07] MEDS ORDERED: LIDOCAINE URO-JET JELLY 2% 5 ML KIT URETHRAL ONE (12:43)
[2017-04-07] MEDS ORDERED: IODIXANOL 320 MG/ML 100 ML IV ONE (12:56)
[2017-04-07] MEDS: LIDOCAINE 2% INJ 20 MG/ML SQ ONE ×2 (13:11→15:02)
[2017-04-07] MEDS ORDERED: HEPARIN SOD,PORK IN 0.45% NACL 25,000 UNIT in 0.45% NACL 1 500ML.BAG IV ONE (13:43)
[2017-04-07] MEDS ORDERED: HEPARIN SODIUM (1,000 UNIT/ML) 1,000 UNIT in SODIUM CHLORIDE 0.9% 1,000 ML IRRIGATION ONE (14:28)
[2017-04-07] MEDS ORDERED: HYDROcodone/APAP 5-325MG 1 EACH TAB PO PRN (18:12)
[2017-04-07] MEDS ORDERED: ACETAMINOPHEN TAB 325 MG TAB PO PRN (18:12)
[2017-04-07] MEDS ORDERED: ACETAMINOPHEN IV (For NPO) 1,000 MG in EMPTY BAG 1 BAG IVPB ONE (18:30)
--- NOTE | 2017-04-07 18:39 | P.PCN ---
Preoperative Diagnosis: Procedure Ablation for VT, recurrent, drug refractory, failed ATP required multiple ICD shocks Underlying ischemic cardio myopathy, congestive heart failure chronic LV systolic dysfunction Procedures performed ICD interrogation with reprogramming prior to the procedure Compressive diagnostic EP study LV pacing and recording 3-D mapping of the left ventricle VT ablation, scar based Intracardiac echo ICD interrogation of the reprogramming of the end of the procedure Procedure details Patient was brought to the EP lab in a fasting state. Written informed consent was obtained prior to the procedure IV antibiotics were administered. The procedure was performed under conscious sedation To venous sheaths in the right femoral vein, one venous sheaths in the left femoral vein and a long femoral arterial sheath right femoral artery placed in the ascending aorta Diagnostic cath was placed in the right side did mapping catheter, Pentaray placed in the left ventricle retrogradely. Intracardiac echocardiography was performed. 3-D mapping of the LV performed Voltage mapping of the left ventricle performed during pacing Voltage mapping revealed inferoseptal scar With catheter manipulation Oramorph VT induced that was difficult to terminated with antitachycardia pacing but was finally successful Tachycardias induced with attempts to pace map Recurrent ventricular tachycardia with inferoseptal/apical exit induced Multiple septal Wheaties and identified However the patient was hemodynamically unstable and therefore a scar based VT ablation was performed The core of the scar was successfully ablated with linear ablation., Irrigated tip catheter, 25 W, good contact force Following that burst stimulation was performed in the right ventricle and in the left ventricle did know VT was induced. Occasional ventricular couplets induced. Ventricular extra stimulation was performed no VT was induced this was in shock contrast to prior to VT ablation in the slightest pacing even a 600 ms was induced ventricular tachycardia ICD was interrogated and reprogrammed MADIT RIT programming and pacing parameters reprogrammed Result Successful scar based VT ablation of the tachycardia was rendered noninducible with reasonably aggressive stimulation. Prior to ablation even minimal straight pacing at a cycle length of 600 ms from the left ventricle would induce ventricular tachycardia Plan Restart warfarin and continue other medications including amitriptyline drugs. Anesthesia: MAC Condition: stable
[2017-04-07] MEDS: LACTATED RINGERS 1,000 ML IV SCH (23:11)
[2017-04-07] MEDS: MEXILETINE 150 MG CAP PO SCH (23:15)
[2017-04-07] MEDS: ATORVASTATIN 80 MG TAB PO SCH (23:16)
[2017-04-07] MEDS: METOPROLOL TARTRATE 25 MG TAB PO SCH (23:16)
[2017-04-07] MEDS: WARFARIN 2.5 MG TAB PO SCH (23:16)
[2017-04-08 07:26] LABS: INR 1.9 (<1.2); Prothrombin Time 17.5 sec (9.0-12.0)
[2017-04-08] MEDS: WARFARIN 2.5 MG TAB PO SCH ×2 (07:42→18:27)
[2017-04-08] MEDS: LOSARTAN 25 MG TAB PO SCH (07:48)
[2017-04-08] MEDS: SPIRONOLACTONE 25 MG TAB PO SCH (07:48)
[2017-04-08] MEDS: METOPROLOL TARTRATE 25 MG TAB PO SCH ×2 (07:48→21:07)
[2017-04-08] MEDS: MEXILETINE 150 MG CAP PO SCH ×2 (08:30→17:59)
[2017-04-08] MEDS: ASPIRIN 81 MG PO SCH (08:30)
[2017-04-08] MEDS: CLOPIDOGREL 75 MG TAB PO SCH (08:30)
[2017-04-08] MEDS: ISOSORBIDE MONONITRATE ER 60 MG TAB.ER.24H PO SCH (08:30)
[2017-04-08] MEDS: AMIODARONE 200 MG TAB PO SCH (08:30)
[2017-04-08] MEDS: LACTATED RINGERS 1,000 ML IV SCH (17:56)
[2017-04-08] MEDS: SODIUM CHLORIDE 0.9% 1,000 ML IV SCH (17:59)
[2017-04-08] MEDS ORDERED: WARFARIN 2.5 MG TAB PO SCH (18:00)
[2017-04-08] MEDS: ATORVASTATIN 80 MG TAB PO SCH (21:07)
[2017-04-09] MEDS: MEXILETINE 150 MG CAP PO SCH ×2 (00:56→08:35)
[2017-04-09 05:34] VITALS: RESP 18
[2017-04-09 07:25] LABS: INR 2.1 (<1.2)
[2017-04-09] MEDS ORDERED: FUROSEMIDE 40 MG TAB PO STA (07:33)
--- NOTE | 2017-04-09 07:39 | P.DS ---
Providers Attending physician: Jozef Prasad Primary care physician: Bri[facility] [place] [facility] Course: Patient is doing well from a cardiac standpoint. Yesterday he was doing well he denied any chest discomfort or shortness of breath but he had difficulty walking and he had pain in the groin and in his leg and his legs felt numb and he could not walk and hence discharge was deferred physical therapy was consulted and he had been ambulating in the hallways thereafter. Now he is doing well he can ambulate in the hallways comfortably he has no discomfort in his legs circulation is normal Pulse rate in the 50s, afebrile 97.6F, normal respirations, blood pressure 113/ 57 mmHg Breath sounds are clear no rhonchi no crackles Heart sounds S1-S2 normal no murmurs or gallop or rub Abdomen soft nontender Extent is warm no edema his groins are healing well as nosing at this time there is no hematoma there is no swelling or tenderness or any bruising Impression Recurrent drug refractory symptomatic VT which did not respond to antitachycardia pacing and required ICD shocks, multiple episodes Successful VT ablation, scar based linear ablation. Prior to this the patient was very easily inducible with minimal pacing. Following VT ablation the patient was rendered noninducible with recently aggressive ventricular stimulation Ischemic cardio myopathy known coronary artery disease or myocardial infarction CHF class 2-3 Single-chamber ICD, underlying left bundle branch block pattern Venogram reveals stenosis at the subclavian axillary vein junction but the subclavian vein can be accessed up across centrally Severe calcific peripheral vascular disease with occlusive disease in the iliac and femoral arteries bilaterally Intermittent bradycardia underlying left bundle branch block Suggest By mouth Lasix 40 mg stat 1 dose only Ambulate in the hallways with groin is stable then Discharge home after breakfast Follow-up with Dr. Bruce on Thursday next week at PT/INR checked that day Take warfarin 2.5 g by mouth daily. No other changes in medications Patient Condition at Discharge: Stable Plan - Discharge Summary Discharge Rx Participant: No New Discharge Prescriptions: Continue Losartan [Cozaar] 25 mg PO DAILY Isosorbide Mononitrate ER [Imdur] 60 mg PO DAILY Nitroglycerin Sl Tabs [Nitrostat] 0.4 mg SUBLINGUAL Q5M PRN #25 tab PRN Reason: Chest Pain Atorvastatin [Lipitor] 80 mg PO HS #30 tab Clopidogrel [Plavix] 75 mg PO DAILY #100 tab Spironolactone [Aldactone] 12.5 mg PO DAILY #30 tab Warfarin [Coumadin] 2.5 mg PO HS Aspirin EC [Ecotrin Low Dose] 81 mg PO DAILY Metoprolol Tartrate [Lopressor] 25 mg PO BID #60 tab Mexiletine [Mexitil] 150 mg PO Q8HR #90 capsule Amiodarone HCl [Pacerone] 200 mg PO QAM Discharge Medication List Isosorbide Mononitrate ER [Imdur] 60 mg PO DAILY 02/08/14 [History] Losartan [Cozaar] 25 mg PO DAILY 02/08/14 [History] Atorvastatin [Lipitor] 80 mg PO HS #30 tab 12/01/15 [Rx] Clopidogrel [Plavix] 75 mg PO DAILY #100 tab 12/01/15 [Rx] Nitroglycerin Sl Tabs [Nitrostat] 0.4 mg SUBLINGUAL Q5M PRN #25 tab 12/01/15 [Rx ] Spironolactone [Aldactone] 12.5 mg PO DAILY #30 tab 12/01/15 [Rx] Warfarin [Coumadin] 2.5 mg PO HS 03/24/16 [History] Aspirin EC [Ecotrin Low Dose] 81 mg PO DAILY 02/27/17 [History] Metoprolol Tartrate [Lopressor] 25 mg PO BID #60 tab 03/02/17 [Rx] Mexiletine [Mexitil] 150 mg PO Q8HR #90 capsule 03/05/17 [Rx] Amiodarone HCl [Pacerone] 200 mg PO QAM 04/02/17 [History] Follow up Appointment(s)/Referral(s): Karson Bruce MD [STAFF PHYSICIAN] - 1 Week Activity/Diet/Wound Care/Special Instructions: Post EP study - Ablation instructions 1. Keep access sites dry for 2 days. 2. No heavy lifting or straining for 2 days. 3. Avoid bending the hips repeatedly for 2 days. 4. You may go up and down stairs slowly Call if the following is noted 1. Bleeding, increasing swelling or pain at the access sites. 2. Increasing chest discomfort, especially upon taking a deep breath. 3. Increasing shortness of breath, at rest or with exertion. 4. Undue cough / phlegm 5. Difficulty or pain while swallowing. 6. Pain or change in color in the extremities. 7. Fever, chills, rigors. 8. Increasing headache or neurologic symptoms. 9. Dizziness, fainting, palpitations Follow-up Dr. Quiles probably next week on Thursday PT/INR checked next week on Thursday Coumadin 2.5 mg by mouth daily Continue all other cardiac medications Discharge Disposition: HOME SELF-CARE
--- NOTE | 2017-04-09 07:42 | P.PN ---
Subjective Progress Note Date: 04/08/17 Principal diagnosis: Rec VTACH Patient is doing well from a cardiac standpoint. He denies any chest discomfort or undue shortness of breath or dizziness lightheadedness or palpitations. This imposing the right current from the arterial axis site but no hematoma no swelling no pain. The nurse held his Coumadin dose last night However later when the patient was made to ambulate in the hallways he was unable to walk his right leg was numb he had pain in the right leg Pulse rate in the 50s, afebrile 97.6F, normal respirations, blood pressure 113/ 57 mmHg Breath sounds are clear no rhonchi no crackles Heart sounds S1-S2 normal no murmurs or gallop or rub Abdomen soft nontender Extent is warm no edema his groins are healing well as nosing at this time there is no hematoma there is no swelling or tenderness or any bruising Impression Recurrent drug refractory symptomatic VT which did not respond to antitachycardia pacing and required ICD shocks, multiple episodes Successful VT ablation, scar based linear ablation. Prior to this the patient was very easily inducible with minimal pacing. Following VT ablation the patient was rendered noninducible with recently aggressive ventricular stimulation Ischemic cardio myopathy known coronary artery disease or myocardial infarction CHF class 2-3 Single-chamber ICD, underlying left bundle branch block pattern Venogram reveals stenosis at the subclavian axillary vein junction but the subclavian vein can be accessed up across centrally Severe calcific peripheral vascular disease with occlusive disease in the iliac and femoral arteries bilaterally Suggest Coumadin 1.25 mg by mouth this morning and then 2.5 mg in the evening, continue all other cardiac medications Ambulatory the hallways sit up in a chair and if the patient is stable and his groins are healing well and he may be discharged home by 6 PM today. However patient complained of pain and numbness in his right leg and was unable to walk. Physical therapy was consulted Discharge was withheld to watch the circulation in the right lower extremity atenolol the patient started ambulating Discharge planning for 09 of April Objective - Vital Signs Vital signs: Vital Signs Temp 97.9 F 04/09/17 04:00 Pulse 52 L 04/09/17 04:00 Resp 18 04/09/17 04:00 BP 131/63 04/09/17 04:00 Pulse Ox 98 04/09/17 04:00 Intake & Output 0204/09/17 04/09/17 18:59 06:59 18:59 Intake Total 1360 Output Total 1000 Balance 360 Weight 92.986 kg Intake: Oral 960 Other 400 Output: Urine 1000 Uretheral ([place]) 1000 Other: Voiding Method Toilet Toilet # Voids 1 - Labs Labs: Abnormal Lab Results - Last 24 Hours (Table) 04/09/17 Range/Units 06:31 PT 19.0 H (9.0-12.0) sec INR 2.1 H (<1.2)
[2017-04-09 08:02] VITALS: BP 119/71; PULSE 64; TEMP 97.6
[2017-04-09] MEDS: LACTATED RINGERS 1,000 ML IV SCH (08:28)
[2017-04-09] MEDS: METOPROLOL TARTRATE 25 MG TAB PO SCH (08:35)
[2017-04-09] MEDS: AMIODARONE 200 MG TAB PO SCH (08:35)
[2017-04-09] MEDS: LOSARTAN 25 MG TAB PO SCH (08:35)
[2017-04-09] MEDS: SPIRONOLACTONE 25 MG TAB PO SCH (08:35)
[2017-04-09] MEDS: ASPIRIN 81 MG PO SCH (08:35)
[2017-04-09] MEDS: CLOPIDOGREL 75 MG TAB PO SCH (08:35)
[2017-04-09] MEDS: ISOSORBIDE MONONITRATE ER 60 MG TAB.ER.24H PO SCH (08:35)
[2017-04-09] MEDS: SODIUM CHLORIDE 0.9% 1,000 ML IV SCH (08:36)
== END 2017-04-09 12:50 | disposition home or self-care (01) ==
LOC: CATHEP 09:09 → 3OBS 17:37 → CATHEP 04-09 12:50
PROVIDERS: ATTEND Internal Medicine Clinical Cardiac Electrophysiology
DX: I47.2 Ventricular tachycardia (principal); I25.10 Atherosclerotic heart disease of native coronary artery without angina pectoris; I13.0 Hypertensive heart and chronic kidney disease with heart failure and stage 1 through stage 4 chronic kidney disease, or unspecified chronic kidney disease; N18.3 Chronic kidney disease, stage 3 (moderate); I50.22 Chronic systolic (congestive) heart failure; Z87.891 Personal history of nicotine dependence; Z95.1 Presence of aortocoronary bypass graft; Z95.5 Presence of coronary angioplasty implant and graft; I73.9 Peripheral vascular disease, unspecified; Z79.01 Long term (current) use of anticoagulants; Z79.02 Long term (current) use of antithrombotics/antiplatelets; Z79.82 Long term (current) use of aspirin; Z79.899 Other long term (current) drug therapy; Z88.8 Allergy status to other drugs, medicaments and biological substances
CPT/HCPCS: 97162; 93662; 93654; 85347; 85610 ×3; C1894 ×3; C1769 ×3; C1731; C1759; C1893; C1732; J2001; J2250; J2720; J1644 ×3; Q9967; J2405; J3010; J2370; J2704; J0690

== ENCOUNTER 2017-09-26 23:56 | Observation (INO) | payer MEDICARE, OTHER ==
[2017-09-27] MEDS ORDERED: SODIUM CHLORIDE 0.9% 1,000 ML IV STA (00:05)
[2017-09-27] MEDS ORDERED: MORPHINE SULFATE 4 MG/ML SYRINGE IVP PRN (00:05)
[2017-09-27] MEDS ORDERED: MORPHINE SULFATE 4 MG/ML SYRINGE IV PRN (00:29)
[2017-09-27] MEDS ORDERED: NALOXONE 0.4 MG/ML 1 ML VIAL IV PRN (00:29)
--- NOTE | 2017-09-27 00:29 | ED ---
General Adult HPI - General Chief complaint: Abdominal Pain Stated complaint: Abdoinal Pain Time Seen by Provider: 09/27/17 00:05 Source: EMS Mode of arrival: EMS - History of Present Illness Initial comments: 72-year-old male who was a transfer from an outside facility for an evaluation of an incarcerated left inguinal hernia. Patient reports that today he was at a garage sale or a bizarre and he did some heavy lifting, he subsequently developed a bulge in his left groin with some associated pain. He was unable to reduce the bulge suicide care at an outside hospital where labs and imaging were obtained. ER physician made an attempt to reduce the left inguinal hernia but was unsuccessful. A computed tomography scan did reveal an incarcerated left inguinal hernia containing sigmoid bowel but did have some evidence of diverticulitis in the incarcerated bowel segment. The patient was treated with IV fluids as well as fentanyl for pain management. A general surgeon was not available at the outside hospital so decision was made to transfer the patient here for further management. Upon arrival the patient states that while laying flat and after receiving pain may meds his pain is only 1 out of 10. However he is still been unable to reduce the inguinal hernia. - Related Data Home Medications Medication Instructions Recorded Confirmed Isosorbide Mononitrate ER [Imdur] 60 mg PO DAILY 02/08/14 09/27/17 Losartan [Cozaar] 25 mg PO DAILY 02/08/14 09/27/17 Warfarin [Coumadin] 2.5 mg PO HS 03/24/16 09/27/17 Aspirin EC [Ecotrin Low Dose] 81 mg PO DAILY 02/27/17 09/27/17 Previous Rx's Medication Instructions Recorded Atorvastatin [Lipitor] 80 mg PO HS #30 tab 12/01/15 Clopidogrel [Plavix] 75 mg PO DAILY #100 tab 12/01/15 Nitroglycerin Sl Tabs [Nitrostat] 0.4 mg SUBLINGUAL Q5M PRN #25 tab 12/01/15 Spironolactone [Aldactone] 12.5 mg PO DAILY #30 tab 12/01/15 Metoprolol Tartrate [Lopressor] 25 mg PO BID #60 tab 03/02/17 Allergies Allergy/AdvReac Type Severity Reaction Status Date / Time RUTH Inhibitors AdvReac Severe KIDNEY Verified 04/02/17 11:20 FAILURE Review of Systems ROS Statement: Those systems with pertinent positive or pertinent negative responses have been documented in the HPI. ROS Other: All systems not noted in ROS Statement are negative. Past Medical History Past Medical History: Eye Disorder, Myocardial Infarction ([place]), Renal Disease Additional Past Medical History / Comment(s): HX RENAL PROB R/T RUTH Inhibitors, STATES LEFT KIDNEY SMALLER THAN RIGHT, HAD RENAL FAILURE 2006-RESOLVED. CARDIOMYOPATHY. AAA-HAS YEARLY F/U. [facility], recent admission- defib. "went off" Last Myocardial Infarction Date:: 2010 History of Any Multi-Drug Resistant Organisms: None Reported Past Surgical History: AICD, Coronary Bypass/CABG, Heart Catheterization, Heart Catheterization With Stent Additional Past Surgical History / Comment(s): 1994 Cabg triple vessel. TOTAL OF 5 STENTS. LT Carotid Endartectomy. GENERATOR CHANGE 09/20/14, & HAD REVISION OF HEDIS ABSTRACTOR. [facility] Past Anesthesia/Blood Transfusion Reactions: No Reported Reaction Additional Past Anesthesia/Blood Transfusion Reaction / Comment(s): Pt recieved blood with no reaction. Date of Last Stent Placement:: 2016 Type of Cardiac Device: AICD Device Placement Date:: 06/27/10, 10-16-14 Past Psychological History: No Psychological Hx Reported Smoking Status: Former smoker Past Alcohol Use History: None Reported Past Drug Use History: None Reported - Past Family History Father Family Medical History: Congestive Heart Failure (CHF), Myocardial Infarction ( [place]) Mother Family Medical History: Cancer Additional Family Medical History / Comment(s): Mother of unknown cancer. General Exam General appearance: alert, in no apparent distress Head exam: Present: atraumatic, normocephalic Eye exam: Present: normal appearance, PERRL ENT exam: Present: normal exam Neck exam: Present: normal inspection Respiratory exam: Present: normal lung sounds bilaterally. Absent: respiratory distress Cardiovascular Exam: Present: regular rate, normal rhythm GI/Abdominal exam: Present: soft, hernia (Firm left inguinal hernia with tenderness to palpation). Absent: distended exam: Present: other (Left inguinal hernia as documented above) Extremities exam: Present: full ROM Neurological exam: Present: alert, oriented X3 Psychiatric exam: Present: normal affect, normal mood Skin exam: Present: warm, dry, intact Course Vital Signs 09/26/17 09/27/17 09/27/17 23:57 00:29 00:53 Temperature 98.8 F Pulse Rate 75 65 Respiratory 16 16 16 Rate Blood Pressure 147/71 O2 Sat by Pulse 98 98 Oximetry 09/27/17 01:01 Temperature Pulse Rate Respiratory 16 Rate Blood Pressure 125/60 O2 Sat by Pulse 97 Oximetry Medical Decision Making - Medical Decision Making The patient was seen and evaluated, history was obtained from the patient and review of outside medical record with no known history of inguinal hernia, developed a bulge in his left groin after heavy lifting earlier in the day, workup with outside hospital revealed a left inguinal hernia on computed tomography scan with sigmoid colon with possible diverticulitis noted in the hernia Patient was treated with IV fluids and pain management prior to transfer Patient with a palpable hernia, no pain upon arrival The patient was placed in Trendelenburg position, and ice pack was applied to the hernia - pain medications were ordered preoperatively higher to attempt at reduction Operative labs were ordered I attempted reduction of the left inguinal hernia. I did feel the hernia reduce , patient had some discomfort with this but his longest her pressure remained the hernia remained reduced and the patient was asymptomatic. However upon removing direct pressure the hernia again recurred, patient had only minimal discomfort with this but continued discomfort with palpation. Patient care was discussed with general surgery on-call Dr. Chan who accepts the patient to her service agrees with plan for nothing by mouth, IV fluids, antibiotics for documented diverticulitis within the hernia. Orders were placed. Patient remained hemodynamically stable and comfortable throughout his ED stay. - Lab Data Result diagrams: 09/27/17 00:25 09/27/17 00:25 Lab Results 09/27/17 09/27/17 09/27/17 Range/Units 00:25 00:25 00:25 WBC 7.3 (3.8-10.6) k/uL RBC 4.12 L (4.30-5.90) m/uL Hgb 11.4 L (13.0-17.5) gm/dL Hct 34.6 L (39.0-53.0) % MCV 84.0 (80.0-100.0) fL MCH 27.7 (25.0-35.0) pg MCHC 33.0 (31.0-37.0) g/dL RDW 14.8 (11.5-15.5) % Plt Count 135 L (150-450) k/uL Neutrophils % 81 % Lymphocytes % 11 % Monocytes % 6 % Eosinophils % 1 % Basophils % 0 % Neutrophils # 5.9 (1.3-7.7) k/uL Lymphocytes # 0.8 L (1.0-4.8) k/uL Monocytes # 0.4 (0-1.0) k/uL Eosinophils # 0.1 (0-0.7) k/uL Basophils # 0.0 (0-0.2) k/uL PT (9.0-12.0) sec INR (<1.2) APTT (22.0-30.0) sec Sodium 138 (137-145) mmol/L Potassium 3.9 (3.5-5.1) mmol/L Chloride 109 H (98-107) mmol/L Carbon Dioxide 22 (22-30) mmol/L Anion Gap 7 mmol/L BUN 38 H (9-20) mg/dL Creatinine 1.80 H (0.66-1.25) mg/dL Est GFR (CKD-EPI)AfAm 43 (>60 ml/min/1.73 sqM) Est GFR (CKD-EPI)NonAf 37 (>60 ml/min/1.73 sqM) Glucose 95 (74-99) mg/dL Plasma Lactic Acid Dorian 0.7 (0.7-2.0) mmol/L Calcium 8.7 (8.4-10.2) mg/dL Total Bilirubin 0.8 (0.2-1.3) mg/dL AST 22 (17-59) U/L ALT 24 (21-72) U/L Alkaline Phosphatase 62 (38-126) U/L Total Protein 5.6 L (6.3-8.2) g/dL Albumin 3.2 L (3.5-5.0) g/dL Blood Type Blood Type Recheck Antibody Screen Spec Expiration Date 09/27/17 09/27/17 Range/Units 00:25 00:25 WBC (3.8-10.6) k/uL RBC (4.30-5.90) m/uL Hgb (13.0-17.5) gm/dL Hct (39.0-53.0) % MCV (80.0-100.0) fL MCH (25.0-35.0) pg MCHC (31.0-37.0) g/dL RDW (11.5-15.5) % Plt Count (150-450) k/uL Neutrophils % % Lymphocytes % % Monocytes % % Eosinophils % % Basophils % % Neutrophils # (1.3-7.7) k/uL Lymphocytes # (1.0-4.8) k/uL Monocytes # (0-1.0) k/uL Eosinophils # (0-0.7) k/uL Basophils # (0-0.2) k/uL PT 18.7 H (9.0-12.0) sec INR 2.1 H (<1.2) APTT 28.6 (22.0-30.0) sec Sodium (137-145) mmol/L Potassium (3.5-5.1) mmol/L Chloride (98-107) mmol/L Carbon Dioxide (22-30) mmol/L Anion Gap mmol/L BUN (9-20) mg/dL Creatinine (0.66-1.25) mg/dL Est GFR (CKD-EPI)AfAm (>60 ml/min/1.73 sqM) Est GFR (CKD-EPI)NonAf (>60 ml/min/1.73 sqM) Glucose (74-99) mg/dL Plasma Lactic Acid Dorian (0.7-2.0) mmol/L Calcium (8.4-10.2) mg/dL Total Bilirubin (0.2-1.3) mg/dL AST (17-59) U/L ALT (21-72) U/L Alkaline Phosphatase (38-126) U/L Total Protein (6.3-8.2) g/dL Albumin (3.5-5.0) g/dL Blood Type O Positive Blood Type Recheck No Antibody Screen NEGATIVE Spec Expiration Date 09/30/20172324 Disposition Clinical Impression: Hernia, inguinal, left Disposition: ADMITTED IP TO THIS [facility] Condition: Good Decision Time: 00:31
[2017-09-27] MEDS ORDERED: metroNIDAZOLE-NS PMX 500 MG in SALINE 1 100ML.BAG IVPB STA (00:31)
[2017-09-27] MEDS ORDERED: cefTRIAXone IN SWFI 1,000 MG/10 ML SYRINGE IVP STA (00:31)
[2017-09-27 00:36] LABS: Basophils % (A) 0 %; Eosinophils # (A) 0.1 k/uL (0-0.7); Eosinophils % (A) 1 %; HCT 34.6 % (39.0-53.0); HGB 11.4 gm/dL (13.0-17.5); Lymphocytes # (A) 0.8 k/uL (1.0-4.8); Lymphocytes % (A) 11 %; MCH 27.7 pg (25.0-35.0); Mean Platelet Volume 7.3; Monocytes # (A) 0.4 k/uL (0-1.0); Monocytes % (A) 6 %; Neutrophils # (A) 5.9 k/uL (1.3-7.7); Neutrophils % (A) 81 %; Platelet Count 135 k/uL (150-450); RBC 4.12 m/uL (4.30-5.90); RDW 14.8 % (11.5-15.5); WBC 7.3 k/uL (3.8-10.6)
[2017-09-27 00:45] LABS: INR 2.1 (<1.2); Partial Thromboplastin Time 28.6 sec (22.0-30.0); Prothrombin Time 18.7 sec (9.0-12.0)
[2017-09-27 01:03] LABS: Albumin 3.2 g/dL (3.5-5.0); Calcium 8.7 mg/dL (8.4-10.2); Potassium 3.9 mmol/L (3.5-5.1); Total Bilirubin 0.8 mg/dL (0.2-1.3); Total Protein 5.6 g/dL (6.3-8.2)
[2017-09-27 02:00] VITALS: BMI 29.0
[2017-09-27] MEDS ORDERED: PHYTONADIONE 10 MG in SODIUM CHLORIDE 0.9% 50 ML IVPB STA (12:24)
--- NOTE | 2017-09-27 12:32 | P.GSHP ---
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 He felt pain and a lump in the left groin. No previous episodes of anything like this in the past. No history of previous hernia repair. He was sent to the emergency department here because the hernia was not reducible at [facility]. The ER here was able to reduce the hernia. He feels better today. He still has tenderness. No nausea or vomiting. He does take Coumadin and Plavix due to history of heart issues. 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 No problems with regular chest pain. He denies any shortness of breath or chest pain today. Denies any nausea or vomiting. He is hungry. Denies any previous colonoscopy. No change in bowel habits. No significant issues with urination. - Review of Systems All systems: negative Past Medical History Past Medical History: Eye Disorder, Myocardial Infarction ([place]), Renal Disease Additional Past Medical History / Comment(s): HX RENAL PROB R/T RUTH Inhibitors, STATES LEFT KIDNEY SMALLER THAN RIGHT, HAD RENAL FAILURE 2006-RESOLVED. CARDIOMYOPATHY. AAA-HAS YEARLY F/U. GLAUCOMA, recent admission- defib. "went off" Last Myocardial Infarction Date:: 2010 History of Any Multi-Drug Resistant Organisms: None Reported Past Surgical History: AICD, Coronary Bypass/CABG, Heart Catheterization, Heart Catheterization With Stent Additional Past Surgical History / Comment(s): 1994 Cabg triple vessel. TOTAL OF 5 STENTS. LT Carotid Endartectomy. 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 [employer] Past Anesthesia/Blood Transfusion Reactions: No Reported Reaction Additional Past Anesthesia/Blood Transfusion Reaction / Comment(s): Pt recieved blood with no reaction. Date of Last Stent Placement:: 2016 Type of Cardiac Device: AICD Device Placement Date:: 06/27/10, 10-16-14 Past Psychological History: No Psychological Hx Reported Smoking Status: Former smoker Past Alcohol Use History: None Reported Past Drug Use History: None Reported - Past Family History Father Family Medical History: Congestive Heart Failure (CHF), Myocardial Infarction ( [place]) Mother Family Medical History: Cancer Additional Family Medical History / Comment(s): Mother of unknown cancer. Medications and Allergies Home Medications Medication Instructions Recorded Confirmed Type Isosorbide Mononitrate ER [Imdur] 60 mg PO DAILY 02/08/14 09/27/17 History Losartan [Cozaar] 25 mg PO DAILY 02/08/14 09/27/17 History Atorvastatin [Lipitor] 80 mg PO HS #30 tab 12/01/15 09/27/17 Rx Clopidogrel [Plavix] 75 mg PO DAILY #100 tab 12/01/15 09/27/17 Rx Nitroglycerin Sl Tabs [Nitrostat] 0.4 mg SUBLINGUAL Q5M PRN #25 tab 12/01/1502/02 Rx Spironolactone [Aldactone] 12.5 mg PO DAILY #30 tab 12/01/15 09/27/17 Rx Warfarin [Coumadin] 2.5 mg PO HS 03/24/16 09/27/17 History Aspirin EC [Ecotrin Low Dose] 81 mg PO DAILY 02/27/17 09/27/17 History Allopurinol [Zyloprim] 100 mg PO DAILY 09/27/17 09/27/17 History Amiodarone [Cordarone] 200 mg PO DAILY 09/27/17 09/27/17 History Carvedilol [Coreg] 3.125 mg PO BID 09/27/17 09/27/17 History Furosemide [Lasix] 40 mg PO DAILY 09/27/17 09/27/17 History Latanoprost [Xalatan 0.005%] 1 drop BOTH EYES HS 09/27/17 09/27/17 History Allergies Allergy/AdvReac Type Severity Reaction Status Date / Time RUTH Inhibitors AdvReac Severe KIDNEY Verified 09/27/17 12:04 FAILURE Surgical - Exam Osteopathic Statement: *. No significant issues noted on an osteopathic structural exam other than those noted in the History and Physical/Consult. Vital Signs Temp Pulse Resp BP Pulse Ox 98.8 F 75 16 147/71 98 09/26/17 23:57 09/26/17 23:57 09/26/17 23:57 09/26/17 23:57 09/26/17 23:57 - General well developed, well nourished, no distress - Eyes normal ocular movement - ENT normal mucosa, no congestion - Neck trachea midline, no lymphadectomy - Respiratory normal respiratory effort, clear to auscultation - Cardiovascular Rhythm: regular - Abdomen Abdomen: soft, tender (In the left groin), bowel sounds, no surgical scars, no rigid, no rebound, no distended Hernia: inguinal, reducible (Hernia is reducible but quickly returns) - Psychiatric oriented to time, oriented to person, oriented to place, speech is normal, memory intact Results - Labs 09/27/17 00:25 09/27/17 00:25 Abnormal Lab Results - Last 24 Hours (Table) 09/27/17 09/27/17 09/27/17 Range/Units 00:25 00:25 00:25 RBC 4.12 L (4.30-5.90) m/uL Hgb 11.4 L (13.0-17.5) gm/dL Hct 34.6 L (39.0-53.0) % Plt Count 135 L (150-450) k/uL Lymphocytes # 0.8 L (1.0-4.8) k/uL PT 18.7 H (9.0-12.0) sec INR 2.1 H (<1.2) Chloride 109 H (98-107) mmol/L BUN 38 H (9-20) mg/dL Creatinine 1.80 H (0.66-1.25) mg/dL Total Protein 5.6 L (6.3-8.2) g/dL Albumin 3.2 L (3.5-5.0) g/dL Diabetes panel 09/27/17 Range/Units 00:25 Sodium 138 (137-145) mmol/L Potassium 3.9 (3.5-5.1) mmol/L Chloride 109 H (98-107) mmol/L Carbon Dioxide 22 (22-30) mmol/L BUN 38 H (9-20) mg/dL Creatinine 1.80 H (0.66-1.25) mg/dL Glucose 95 (74-99) mg/dL Calcium 8.7 (8.4-10.2) mg/dL AST 22 (17-59) U/L ALT 24 (21-72) U/L Alkaline Phosphatase 62 (38-126) U/L Total Protein 5.6 L (6.3-8.2) g/dL Albumin 3.2 L (3.5-5.0) g/dL Calcium panel 09/27/17 Range/Units 00:25 Calcium 8.7 (8.4-10.2) mg/dL Albumin 3.2 L (3.5-5.0) g/dL Pituitary panel 09/27/17 Range/Units 00:25 Sodium 138 (137-145) mmol/L Potassium 3.9 (3.5-5.1) mmol/L Chloride 109 H (98-107) mmol/L Carbon Dioxide 22 (22-30) mmol/L BUN 38 H (9-20) mg/dL Creatinine 1.80 H (0.66-1.25) mg/dL Glucose 95 (74-99) mg/dL Calcium 8.7 (8.4-10.2) mg/dL Adrenal panel 09/27/17 Range/Units 00:25 Sodium 138 (137-145) mmol/L Potassium 3.9 (3.5-5.1) mmol/L Chloride 109 H (98-107) mmol/L Carbon Dioxide 22 (22-30) mmol/L BUN 38 H (9-20) mg/dL Creatinine 1.80 H (0.66-1.25) mg/dL Glucose 95 (74-99) mg/dL Calcium 8.7 (8.4-10.2) mg/dL Total Bilirubin 0.8 (0.2-1.3) mg/dL AST 22 (17-59) U/L ALT 24 (21-72) U/L Alkaline Phosphatase 62 (38-126) U/L Total Protein 5.6 L (6.3-8.2) g/dL Albumin 3.2 L (3.5-5.0) g/dL - Imaging CT scan - abdomen: report reviewed, image reviewed Assessment and Plan (1) Hernia, inguinal, left Current Visit: Yes Status: Acute Code(s): K40.90 - UNIL INGUINAL HERNIA, W/ O OBST OR GANGR, NOT SPCF RECUR SNOMED Code(s): 161661154 (2) AICD (automatic cardioverter/defibrillator) present Current Visit: No Status: Acute Code(s): Z95.810 - PRESENCE OF AUTOMATIC ( IMPLANTABLE) CARDIAC DEFIBRILLATOR SNOMED Code(s): 084906321 (3) Atrial fib/flutter, transient Current Visit: No Status: Acute Code(s): IPW8147 - SNOMED Code(s): 558617244 (4) CAD (coronary artery disease) Current Visit: No Status: Acute Code(s): I25.10 - ATHSCL HEART DISEASE OF [place] CORONARY ARTERY W/O ANG PCTRS SNOMED Code(s): 64044635 Plan: On his computed tomography scan there is edema in the wall of the sigmoid colon which is in the hernia sac. The radiologist is describing this as possible mild diverticulitis. The patient has not had diverticulitis in the past. He was not having any fevers chills or change in bowel habits prior to the hernia becoming symptomatic. I think this is likely some bowel wall edema rather than diverticulitis. He showing no signs of fever or leukocytosis. We'll have him evaluated by cardiology. Reverse his Coumadin. Need to go to the OR tomorrow for surgery since this is containing his colon which does show edema. He will need outpatient colonoscopy. Further recommendations to follow.
[2017-09-27 18:07] LABS: INR 1.5 (<1.2)
[2017-09-27] MEDS: ONDANSETRON 4 MG/2 ML VIAL IVP PRN (18:10)
[2017-09-27] MEDS: CARVEDILOL 3.125 MG TAB PO SCH (20:05)
[2017-09-28 08:34] LABS: INR 1.2 (<1.2); Prothrombin Time 11.4 sec (9.0-12.0)
[2017-09-28] MEDS: CARVEDILOL 3.125 MG TAB PO SCH (08:49)
[2017-09-28] MEDS ORDERED: ISOSORBIDE MONONITRATE ER 60 MG TAB.ER.24H PO SCH (09:00)
[2017-09-28] MEDS ORDERED: AMIODARONE 200 MG TAB PO SCH (09:00)
[2017-09-28] MEDS ORDERED: FUROSEMIDE 40 MG TAB PO SCH (09:00)
[2017-09-28] MEDS ORDERED: LOSARTAN 25 MG TAB PO SCH (09:00)
[2017-09-28] MEDS ORDERED: SPIRONOLACTONE 25 MG TAB PO SCH (09:00)
[2017-09-28] MEDS ORDERED: IV FLUID CONTINUATION 1,000 ML IV ONE (09:10)
[2017-09-28] MEDS: ONDANSETRON 4 MG/2 ML VIAL IVP PRN (09:24)
--- NOTE | 2017-09-28 09:54 | P.CRDCN ---
History of Present Illness Consult date: 09/28/17 Chief complaint: Preop cardiac evaluation History of present illness: This is a pleasant 72-year-old gentleman with an extensive cardiac history consistent off coronary artery disease and status post coronary artery bypass grafting as well as a stenting, severe ischemic cardiomyopathy and status post single-chamber AICD, cardiac arrhythmia in the term off V. tach and the patient is status post VT ablation as well as history of atrial flutter was admitted to the hospital with incarcerated left inguinal hernia. The patient was in his usual state of health until yesterday when he was in the yaz[employer] and he did left hepatic of water. Few hours after that he felt pain in the left groin as well as lump in the groin. He was diagnosed with inguinal hernia and the plan is to proceed with surgery this morning by Dr. Chan. The patient does have history of coronary artery disease and prior coronary artery that was grafting as well as a stenting. He underwent a heart catheterization and stenting of the SVG to the circumflex in March 2017 by myself were I did use drug-eluting stent on him. From the cardiac vascular standpoint overview, he denies having any chest pain or chest discomfort, difficulty breathing, feeling of heart racing or fluttering , dizziness or lightheadedness or any syncope. He is very euvolemic on physical examination. He underwent an echocardiogram this morning which I reviewed and did show severe cardiomyopathy with EF around 20% without any significant valvular abnormalities. From a cardiac vascular standpoint of view, the patient can proceed with the surgery. He is at least intermediate risk given his significant and extensive cardiac history. Also since he underwent coronary stenting with drug-eluting stent in March 2017 I would recommend restarting the patient's back, Plavix as soon as possible and safe after the surgery Past Medical History Past Medical History: Eye Disorder, Myocardial Infarction ([place]), Renal Disease Additional Past Medical History / Comment(s): HX RENAL PROB R/T RUTH Inhibitors, STATES LEFT KIDNEY SMALLER THAN RIGHT, HAD RENAL FAILURE 2006-RESOLVED. CARDIOMYOPATHY. AAA-HAS YEARLY F/U. GLAUCOMA, recent admission- defib. "went off" Last Myocardial Infarction Date:: 2010 History of Any Multi-Drug Resistant Organisms: None Reported Past Surgical History: AICD, Coronary Bypass/CABG, Heart Catheterization, Heart Catheterization With Stent Additional Past Surgical History / Comment(s): 1994 Cabg triple vessel. TOTAL OF 5 STENTS. LT Carotid Endartectomy. 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 [employer] Past Anesthesia/Blood Transfusion Reactions: No Reported Reaction Additional Past Anesthesia/Blood Transfusion Reaction / Comment(s): Pt recieved blood with no reaction. Date of Last Stent Placement:: 2016 Type of Cardiac Device: AICD Device Placement Date:: 06/27/10, 10-16-14 Past Psychological History: No Psychological Hx Reported Smoking Status: Former smoker Past Alcohol Use History: None Reported Past Drug Use History: None Reported - Past Family History Father Family Medical History: Congestive Heart Failure (CHF), Myocardial Infarction ( [place]) Mother Family Medical History: Cancer Additional Family Medical History / Comment(s): Mother of unknown cancer. Medications and Allergies Home Medications Medication Instructions Recorded Confirmed Type Isosorbide Mononitrate ER [Imdur] 60 mg PO DAILY 02/08/14 09/27/17 History Losartan [Cozaar] 25 mg PO DAILY 02/08/14 09/27/17 History Atorvastatin [Lipitor] 80 mg PO HS #30 tab 12/01/15 09/27/17 Rx Clopidogrel [Plavix] 75 mg PO DAILY #100 tab 12/01/15 09/27/17 Rx Nitroglycerin Sl Tabs [Nitrostat] 0.4 mg SUBLINGUAL Q5M PRN #25 tab 12/01/1502/02 Rx Spironolactone [Aldactone] 12.5 mg PO DAILY #30 tab 12/01/15 09/27/17 Rx Warfarin [Coumadin] 2.5 mg PO HS 03/24/16 09/27/17 History Aspirin EC [Ecotrin Low Dose] 81 mg PO DAILY 02/27/17 09/27/17 History Allopurinol [Zyloprim] 100 mg PO DAILY 09/27/17 09/27/17 History Amiodarone [Cordarone] 200 mg PO DAILY 09/27/17 09/27/17 History Carvedilol [Coreg] 3.125 mg PO BID 09/27/17 09/27/17 History Furosemide [Lasix] 40 mg PO DAILY 09/27/17 09/27/17 History Latanoprost [Xalatan 0.005%] 1 drop BOTH EYES HS 09/27/17 09/27/17 History Allergies Allergy/AdvReac Type Severity Reaction Status Date / Time RUTH Inhibitors AdvReac Severe KIDNEY Verified 09/27/17 12:04 FAILURE Physical Exam Vitals: Vital Signs Temp Pulse Resp BP Pulse Ox 09/28/17 09:10 98.2 F 63 16 133/81 97 09/28/17 07:00 98.2 F 63 14 132/82 97 09/28/17 00:24 98.7 F 63 16 129/67 96 09/27/17 19:59 99.2 F 97 16 147/80 97 09/27/17 14:57 98.2 F 60 16 136/70 98 09/27/17 13:16 98.3 F 69 14 129/71 96 09/27/17 13:00 98.3 F 57 L 14 135/70 97 Intake and Output 09/27/17 09/28/17 09/28/17 22:59 06:59 14:59 Intake Total 520 Output Total 250 100 Balance 270 -100 Intake: Oral 520 Output: Urine 250 100 Other: Voiding Method Urinal - Constitutional General appearance: no acute distress - Respiratory Respiratory: bilateral: CTA - Cardiovascular Heart sounds: normal: S1, S2 Results 09/27/17 00:25 09/27/17 00:25 Coagulation 09/27/17 09/28/17 Range/Units 17:40 08:13 PT 14.0 H 11.4 (9.0-12.0) sec Current Medications Generic Name Dose Route Start Last Admin Trade Name Freq PRN Reason Stop Dose Admin Amiodarone HCl 200 mg 09/28/17 09:00 Cordarone PO DAILY [facility] Carvedilol 3.125 mg 09/27/17 21:00 09/28/17 08:49 Coreg PO 3.125 mg BID LETHA Administration Furosemide 40 mg 09/28/17 09:00 Lasix PO DAILY [facility] Isosorbide Mononitrate 60 mg 09/28/17 09:00 Imdur PO DAILY [facility] Losartan Potassium 25 mg 09/28/17 09:00 Cozaar PO DAILY LETHA Morphine Sulfate 4 mg 09/27/17 00:05 09/27/17 00:06 Morphine Sulfate (Inj) IVP 4 mg ONCE PRN Administration Pain Morphine Sulfate 4 mg 09/27/17 00:29 09/27/17 20:05 Morphine Sulfate (Inj) IV 4 mg Q4HR PRN Administration Severe Pain Naloxone HCl 0.2 mg 09/27/17 00:29 Narcan IV Q2M PRN Opioid Reversal Ondansetron HCl 4 mg 09/27/17 00:29 09/28/17 09:24 Zofran IVP 4 mg Q8HR PRN Administration Nausea And Vomiting Spironolactone 12.5 mg 09/28/17 09:00 Aldactone PO DAILY LETHA Intake and Output 09/27/17 09/28/17 09/28/17 22:59 06:59 14:59 Intake Total 520 Output Total 250 100 Balance 270 -100 Intake: Oral 520 Output: Urine 250 100 Other: Voiding Method Urinal 09/27/17 00:25 09/27/17 00:25 Assessment and Plan Assessment: Assessment #1 acute left hernia, inguinal hernia #2 severe underlying CAD as described above #3 severe ischemic cardiomyopathy #4 status post AICD #5 cardiac arrhythmia in the term of atrial flutter #6 multiple comorbid conditions Plan #1 from the cardiac vascular standpoint of view, the patient is asymptomatic. #2 he is also euvolemic #3 the patient can proceed with the surgery. Please note that the patient is at least at moderate risk giving his extensive cardiac history #4 restart the Plavix as soon as safe and possible after the surgery #5 restart the Coumadin as soon and safe after the surgery as well #6 the echocardiogram was reviewed and revealed severe cardiomyopathy Thank you for allowing us but spitting his care and we'll continue following up with him
--- NOTE | 2017-09-28 10:15 | ECHOF ---
Referral Reason:cardiac clearance MEASUREMENTS -------- HEIGHT: 162.6 cm WEIGHT: 93.9 kg BP: 132/82 RVIDd: 3.2 cm (< 3.3) IVSd: 1.4 cm (0.6 - 1.1) LVIDd: 5.2 cm (3.9 - 5.3) LVPWd: 1.2 cm (0.6 - 1.1) IVSs: 2.0 cm LVIDs: 4.4 cm LVPWs: 1.3 cm LAESV Index (A-L): 63.48 ml/m Ao Diam: 4.1 cm (2.0 - 3.7) AV Cusp: 1.0 cm (1.5 - 2.6) LA Diam: 4.2 cm (2.7 - 3.8) MV EXCURSION: 21.020 mm (> 18.000) MV EF SLOPE: 63 mm/s (70 - 150) EPSS: 1.7 cm MV E Venkat: 1.12 m/s MV DecT: 191 ms MV A Venkat: 0.57 m/s MV E/A Ratio: 1.96 RAP: 5.00 mmHg RVSP: 32.95 mmHg FINDINGS -------- Paced rhythm. This was a technically adequate study. The left ventricular size is normal. There is borderline concentric left ventricular hypertrophy. There is severe global hypokinesis of LV . Overall left ventricular systolic function is severely impaired with, an EF < 20%. The right ventricle is normal in size. The left atrium is mildly dilated. LA is severely dilated >40 ml/m2 The right atrial size is normal. There is mild aortic valve sclerosis. There is no evidence of aortic regurgitation. Mild mitral annular calcification present. Mild mitral regurgitation is present. Mild tricuspid regurgitation present. There is no evidence of pulmonary hypertension. The right v entricular systolic pressure, as measured by Doppler, is 32.95mmHg. There is no pulmonic regurgitation present. The aortic root size is normal. There is no pericardial effusion. CONCLUSIONS -------- 1. The left ventricular size is normal. 2. There is borderline concentric left ventricular hypertrophy. 3. There is severe global hypokinesis of LV . 4. Overall left ventricular systolic function is severely impaired with, an EF < 20%. 5. The right ventricle is normal in size. 6. The left atrium is mildly dilated. 7. LA is severely dilated >40 ml/m2 8. The right atrial size is normal. 9. There is mild aortic valve sclerosis. 10. Mild mitral annular calcification present. 11. Mild mitral regurgitation is present. 12. Mild tricuspid regurgitation present. 13. There is no evidence of pulmonary hypertension. 14. The right ventricular systolic pressure, as measured by Doppler, is 32.95mmHg. 15. There is no pulmonic regurgitation present. 16. The aortic root size is normal. 17. There is no pericardial effusion. STONECUTTER ASSISTANT: Diana Alvarez RDCS
[2017-09-28] MEDS ORDERED: ROCURONIUM BROMIDE 10 MG/ML 10 ML VIAL IV ONE (10:54)
[2017-09-28] MEDS ORDERED: GLYCOPYRROLATE 0.2 MG/ML 2 ML VIAL ONE (10:54)
[2017-09-28] MEDS ORDERED: MIDAZOLAM 2 MG/2 ML VIAL ONE (10:54)
[2017-09-28] MEDS ORDERED: ETOMIDATE 2 MG/ML 10 ML VIAL ONE (10:54)
[2017-09-28] MEDS ORDERED: LIDOCAINE 1% INJ 10MG/ML (20 ML MDV) ONE (10:54)
[2017-09-28] MEDS ORDERED: fentaNYL (PF) 50 MCG/ML 2 ML AMP ONE (10:54)
[2017-09-28] MEDS ORDERED: SUCCINYLCHOLINE CHLORIDE 100 MG/5 ML SYR IV ONE (10:54)
[2017-09-28] MEDS ORDERED: NEOSTIGMINE 1 MG/ML 10 ML VIAL ONE (10:54)
[2017-09-28] MEDS ORDERED: PHENYLEPHRINE-0.9% NACL SYG 1 MG/10 ML SYRINGE ONE (10:54)
[2017-09-28] MEDS ORDERED: SODIUM CHLORIDE 0.9% 50 ML with ceFAZolin 2,000 MG IV ONE ×2 (11:15)
[2017-09-28] MEDS ORDERED: BUPIVACAIN-EPI 0.5%-1:200,000 30 ML VIAL SQ ONE (11:18)
[2017-09-28] MEDS ORDERED: HYDROcodone/APAP 5-325MG 1 EACH TAB PO PRN (11:43)
--- NOTE | 2017-09-28 11:48 | P.OP ---
Date of Procedure: 09/28/17 Preoperative Diagnosis: Left inguinal hernia Postoperative Diagnosis: Left direct and indirect inguinal hernia Procedure(s) Performed: Inguinal herniorrhaphy with mesh Anesthesia: SHARI Surgeon: Ofelia Chan Estimated Blood Loss (ml): 5 Pathology: other (Hernia sac) Condition: stable Disposition: PACU Indications for Procedure: Patient had presented with a symptomatic left inguinal hernia which was incarcerated. The hernia was able to be reduced but he had a persistent bulge and pain Description of Procedure: Patient's taken the operative suite where his prepped and draped in usual sterile manner under general endotracheal anesthetic. The ASIS and pubic tubercle were identified. Victoria between those 2 andersen a 3/2 cm incision was made. The subcutaneous tissues were divided. The external oblique is opened along the direction of its fibers. The internal oblique as bluntly opened along the direction of its fibers. The transversalis fascia was opened vertically. There was an edematous hernia sac identified this is reduced from the cord and cord structures totally bifurcated. The hernia sac was then opened to make sure there was no evidence of issue with the sigmoid colon and the colon was unremarkable. The hernia sac was then suture ligated with 0 Vicryl and transected. He also had a fairly large indirect hernia sac. The preperitoneal space was then bluntly developed. A medium oval patch was placed in the area and deployed. He gave good coverage of all potential hernia defects. It was tacked to the fascia medially using a spiral tacker. The transversalis fascia was then closed with 0 Vicryl taking bites of the mesh to secure it in place. The internal oblique was allowed to fall back together. The external oblique was closed with 0 Vicryl. The skin was closed with 4-0 Vicryl in a subcuticular manner. Steri-Strips and dressings were applied. He tolerated the procedure without difficulty and was taken recovery room in satisfactory condition. According to or personnel, ARE correct.
[2017-09-28 12:03] VITALS: RESP 16
[2017-09-28] MEDS ORDERED: hydrALAZINE HCL 20 MG/ML 1 ML VIAL IV ONE (12:06)
[2017-09-28] MEDS ORDERED: SODIUM CHLORIDE 0.9% 1,000 ML IV ONE (12:45)
[2017-09-28 14:11] VITALS: TEMP 97.7
[2017-09-28 14:13] VITALS: PULSE 60
[2017-09-28 14:14] VITALS: BP 111/73
== END 2017-09-28 18:34 | disposition home or self-care (01) ==
LOC: EC 23:56 → 3SUR 09-27 00:32
PROVIDERS: ADMIT Surgery; ATTEND Surgery
DX: K40.30 Unilateral inguinal hernia, with obstruction, without gangrene, not specified as recurrent (principal); I25.2 Old myocardial infarction; I25.5 Ischemic cardiomyopathy; I71.4 Abdominal aortic aneurysm, without rupture; I50.9 Heart failure, unspecified; I47.2 Ventricular tachycardia; I48.91 Unspecified atrial fibrillation; I48.92 Unspecified atrial flutter; I25.10 Atherosclerotic heart disease of native coronary artery without angina pectoris; I73.9 Peripheral vascular disease, unspecified; H40.9 Unspecified glaucoma; Z79.899 Other long term (current) drug therapy; Z79.01 Long term (current) use of anticoagulants; Z79.02 Long term (current) use of antithrombotics/antiplatelets; Z79.82 Long term (current) use of aspirin; Z79.891 Long term (current) use of opiate analgesic; Z88.8 Allergy status to other drugs, medicaments and biological substances; Z95.810 Presence of automatic (implantable) cardiac defibrillator; Z95.1 Presence of aortocoronary bypass graft; Z95.5 Presence of coronary angioplasty implant and graft; Z87.891 Personal history of nicotine dependence; Z80.9 Family history of malignant neoplasm, unspecified
CPT/HCPCS: 36415; 80053; 83605; 85025; 85610; 85730; 86850; 86900; 86901; 88302; 93306; 96361; 96365; 96366; 96367; 96375; 96376; 99284